=== PATIENT | female | born 1955 | race American Indian/Alaskan Native ===

== ENCOUNTER 2016-11-08 12:49 | Outpatient (CLI) | payer MEDICAID ==
--- NOTE | 2016-11-08 14:09 | Mammography Report ---
BILATERAL MAMMOGRAM: FINDINGS: There are scattered fibroglandular densities (approximately 25%-50% glandular). No mass, suspicious calcification, or skin change is seen. Postoperative right breast scar. No interval change compared to prior study of November 2015. CAD was utilized. IMPRESSION: Negative mammogram. There is no mammographic evidence of malignancy. RECOMMENDATION: Follow-up per ACS guidelines. BI-RADS CATEGORY: 1 = Negative ACR BI-RADS MAMMOGRAPHIC CODES: 0 = Needs additional imaging evaluation; 1 = Negative; 2 = Benign; 3 = Probably benign; 4 = Suspicious; 5 = Malignant; 6 = Known biopsy-proven malignancy COMMENT: 1. Dense breast tissue, i.e., adenosis, fibrocystic changes, etc., may obscure an underlying neoplasm. 2. Approximately 10% of cancers are not detected with mammography. 3. A negative mammography report should not delay biopsy if a clinically suspicious mass is present. COMMENT: Patient follow-up letters are generated in [employer].
== END 2016-11-08 12:50 | disposition home or self-care (01) ==
LOC: MAMMO 12:49
PROVIDERS: ATTEND Family Medicine
DX: Z12.31 Encounter for screening mammogram for malignant neoplasm of breast (principal)
CPT/HCPCS: 77067; G0202

== ENCOUNTER 2017-11-09 13:31 | Outpatient (CLI) | payer MEDICAID ==
--- NOTE | 2017-11-09 16:24 | Mammography Report ---
BILATERAL DIGITAL SCREENING MAMMOGRAM with CAD: 11/09/17 13:31:00 CLINICAL: Routine screening.History of right benign biopsy. COMPARISON:11/08/15 FINDINGS: The breasts are almost entirely fatty.Stable right inner benign scar. No mass, architectural distortion or suspicious calcifications. IMPRESSION: No mammographic evidence of malignancy. BI-RADS CATEGORY: 2 -- Benign RECOMMENDATION: Routine mammographic screening in one year. COMMENT: Patient follow-up letters are generated by our [employer] application.
== END 2017-11-09 13:32 | disposition home or self-care (01) ==
LOC: MAMMO 13:31
PROVIDERS: ATTEND Family Medicine
DX: Z12.31 Encounter for screening mammogram for malignant neoplasm of breast (principal)
CPT/HCPCS: 77067

== ENCOUNTER 2017-12-24 09:13 | Inpatient (IN) | payer MEDICAID ==
--- NOTE | 2017-12-24 11:53 | Emergency Department Report ---
ED Shortness of Breath HPI - General Chief Complaint: Adult Asthma Stated Complaint: SOB Time Seen by Provider: 12/24/17 11:43 Source: patient, EMS, old records reviewed (echo 09/2016) Mode of arrival: Ambulatory Limitations: No Limitations - History of Present Illness Initial Comments: 62-year-old female the past medical history CHF, hypertension, diabetes ( insulin and pills), and chronic renal insufficiency presents to the Hospital complaining of worsening shortness of breath since yesterday. Patient has had chronic dyspnea on exertion and two-pillow orthopnea but has noticed recent decrease in exercise tolerance. She denies PND or adding additional pillows to sleep. She complains of nasal congestion causing difficulty breathing due to stopped up nose but denies cough or fever. Patient has chronic intermittent leg edema that improves with leg elevation out acute changes. Denies calf tenderness, recent travel, wheezing, or chest pain. Patient has been compliant with medications including Lasix 20. PMD: Dr. Trimble director of corporate responsibility: Dr. Johnson, account development executive: Dr. Dooley - Related Data Allergies Allergy/AdvReac Type Severity Reaction Status Date / Time Penicillins AdvReac Swelling Unverified 08/08/13 16:23 ED Review of Systems ROS: Stated complaint: SOB Other details as noted in HPI Comment: All other systems reviewed and negative ED Past Medical Hx - Past Medical History Hx Hypertension: Yes Hx Congestive Heart Failure: Yes Hx Diabetes: Yes (insulin and.) Hx Renal Disease: Yes - Surgical History Additional Surgical History: hysterectomy - Social History Smoking Status: Never Smoker Substance Use Type: None ED Physical Exam - General Limitations: No Limitations - Other Other exam information: General: No limitations, patient is alert in no acute distress Head exam: Atraumatic, normocephalic Eyes exam: Normal appearance ENT: Moist mucous membrane, normal oropharynx Neck exam: Normal inspection, full range of motion, no meningismus nontender Respiratory exam: Clear to auscultation bilateral, no wheezes, rales, crackles Cardiovascular: Normal rate and rhythm, normal heart sounds Abdomen: Soft, nondistended, and nontender, with normal bowel sounds, no rebound, or guarding Extremity: Full range of motion, 1+ ankle edema and trace distal leg edema. No calf tenderness [place]: Normal Inspection, full range of motion, no tenderness Neurologic: Alert, oriented x3, cranial nerves intact, no motor or sensory deficit Psychiatric: normal affect, normal mood Skin: Warm, dry, intact ED Course Vital Signs 12/24/17 09:19 Temperature 98.0 F Pulse Rate 73 Respiratory 18 Rate Blood Pressure 168/61 O2 Sat by Pulse 98 Oximetry ED Medical Decision Making - Lab Data Result diagrams: 12/24/17 12:31 12/24/17 12:31 Lab Results 12/24/17 12/24/17 12/24/17 Range/Units 12:31 12:31 12:31 WBC 8.0 (4.5-11.0) K/mm3 RBC 4.20 (3.65-5.03) M/mm3 Hgb 11.2 (10.1-14.3) gm/dl Hct 35.1 (30.3-42.9) % MCV 83 (79-97) fl MCH 27 L (28-32) pg MCHC 32 (30-34) % RDW 18.8 H (13.2-15.2) % Plt Count 214 (140-440) K/mm3 Lymph % (Auto) 8.5 L (13.4-35.0) % [place] % (Auto) 5.0 (0.0-7.3) % Eos % (Auto) 1.6 (0.0-4.3) % Baso % (Auto) 0.7 (0.0-1.8) % Lymph # 0.7 L (1.2-5.4) K/mm3 [place] # 0.4 (0.0-0.8) K/mm3 Eos # 0.1 (0.0-0.4) K/mm3 Baso # 0.1 (0.0-0.1) K/mm3 Seg Neutrophils % 84.2 H (40.0-70.0) % Seg Neutrophils # 6.7 (1.8-7.7) K/mm3 PT 15.3 H (12.2-14.9) Sec. INR 1.15 H (0.87-1.13) APTT 57.4 H (24.2-36.6) Sec. Sodium 137 (137-145) mmol/L Potassium 4.5 (3.6-5.0) mmol/L Chloride 98.0 (98-107) mmol/L Carbon Dioxide 25 (22-30) mmol/L Anion Gap 19 mmol/L BUN 20 H (7-17) mg/dL Creatinine 1.1 (0.7-1.2) mg/dL Estimated GFR > 60 ml/min BUN/Creatinine Ratio 18 % Glucose 112 H (65-100) mg/dL Calcium 9.2 (8.4-10.2) mg/dL Total Bilirubin 0.70 (0.1-1.2) mg/dL AST 33 (5-40) units/L ALT 31 (7-56) units/L Alkaline Phosphatase 186 H (35-129) units/L NT-Pro-B Natriuret Pep 3874 H (0-900) pg/mL Total Protein 7.2 (6.3-8.2) g/dL Albumin 4.0 (3.9-5) g/dL Albumin/Globulin Ratio 1.3 % - EKG Data -: EKG Interpreted by Me EKG shows normal: sinus rhythm, axis (qrs 32), QRS complexes (qrsd 85), ST-T waves Rate: normal (68) - Radiology Data Radiology results: report reviewed CHEST 2 VIEWS INDICATION: Shortness of breath. COMPARISON: 08/19/2009 FINDINGS: Frontal and lateral chest radiographs demonstrate stable cardiomediastinal silhouette/cardiomegaly and pulmonary arterial hypertension. Aortic knob calcifications. Increased lung markings again noted, more so centrally and toward the bases. Mild bibasilar horizontal atelectasis or scarring. No significant pleural effusions. Demineralized bones and thoracic spondylosis. CONCLUSION: Cardiomegaly, possible pulmonary arterial hypertension and mild bibasilar scarring or atelectasis, as described. Please correlate. Thank you for the opportunity to participate in this patient's care. - Medical Decision Making sob sx of chf/elevated bnp previous echo with pulm htn, eF in the 50's and elevated bnp lasix 40 IV in ED Admitted to her pmd/Dr Aparicio informed - Differential Diagnosis CHF, pneumonia, bronchitis, PE Critical Care Time: No Critical care attestation.: If time is entered above; I have spent that time in minutes in the direct care of this critically ill patient, excluding procedure time. ED Disposition Clinical Impression: Dyspnea, CHF exacerbation, Nasal congestion, HTN (hypertension), Obesity Disposition: OP ADMIT IP TO THIS HOSP Is pt being admited?: Yes Condition: Stable Instructions: Hypertension (ED) Time of Disposition: 15:57 (Dr Trimble)
[2017-12-24 12:54] LABS: Basophils # (Auto) 0.1 K/mm3 (0.0-0.1); Basophils % (Auto) 0.7 % (0.0-1.8); Eosinophils # (Auto) 0.1 K/mm3 (0.0-0.4); Eosinophils % (Auto) 1.6 % (0.0-4.3); Hematocrit 35.1 % (30.3-42.9); Hemoglobin 11.2 gm/dl (10.1-14.3); Lymphocytes # (Auto) 0.7 K/mm3 (1.2-5.4); Lymphocytes % (Auto) 8.5 % (13.4-35.0); Mean Corpuscular HGB Conc 32 % (30-34); Mean Corpuscular Hemoglobin 27 pg (28-32); Mean Corpuscular Volume 83 fl (79-97); Monocytes # (Auto) 0.4 K/mm3 (0.0-0.8); Red Cell Distribution Width 18.8 % (13.2-15.2)
[2017-12-24 13:12] LABS: Alanine Aminotransferase 31 units/L (7-56); BUN/Creatinine Ratio 18; Blood Urea Nitrogen 20 mg/dL (7-17); Calcium 9.2 mg/dL (8.4-10.2); Hemolysis Index 8
[2017-12-24 13:39] LABS: INR 1.15 (0.87-1.13)
[2017-12-24 13:45] LABS: Partial Thromboplastin Time 57.4 Sec. (24.2-36.6)
--- NOTE | 2017-12-24 13:48 | XRay Report ---
CHEST 2 VIEWS INDICATION: Shortness of breath. COMPARISON: 08/19/2009 FINDINGS: Frontal and lateral chest radiographs demonstrate stable cardiomediastinal silhouette/cardiomegaly and pulmonary arterial hypertension. Aortic knob calcifications. Increased lung markings again noted, more so centrally and toward the bases. Mild bibasilar horizontal atelectasis or scarring. No significant pleural effusions. Demineralized bones and thoracic spondylosis. CONCLUSION: Cardiomegaly, possible pulmonary arterial hypertension and mild bibasilar scarring or atelectasis, as described. Please correlate. Thank you for the opportunity to participate in this patient's care.
[2017-12-24 14:24] LABS: Platelet Count 214 K/mm3 (140-440)
[2017-12-24] MEDS ORDERED: LASIX IV ONE (14:33)
[2017-12-24] MEDS ORDERED: PROVENTIL IH PRN (15:21)
[2017-12-24] MEDS ORDERED: SODIUM CHLORIDE FLUSH SYRINGE 10 ML IV PRN (15:21)
[2017-12-24] MEDS ORDERED: ZOFRAN IV PRN (15:21)
--- NOTE | 2017-12-24 15:24 | History and Physical Report ---
Medications and Allergies Allergies Allergy/AdvReac Type Severity Reaction Status Date / Time Penicillins AdvReac Swelling Unverified 08/08/13 16:23 Exam - Constitutional Vitals: Temp Pulse Resp BP Pulse Ox 98.0 F 73 18 168/61 98 12/24/17 09:19 12/24/17 09:19 12/24/17 09:19 12/24/17 09:19 12/24/17 09:19 Results - Labs CBC & Chem 7: 12/24/17 12:31 12/24/17 12:31 Labs: Abnormal lab results 12/24/17 12/24/17 12/24/17 Range/Units 12:31 12:31 12:31 MCH 27 L (28-32) pg RDW 18.8 H (13.2-15.2) % Lymph % (Auto) 8.5 L (13.4-35.0) % Lymph # 0.7 L (1.2-5.4) K/mm3 Seg Neutrophils % 84.2 H (40.0-70.0) % PT 15.3 H (12.2-14.9) Sec. INR 1.15 H (0.87-1.13) APTT 57.4 H (24.2-36.6) Sec. BUN 20 H (7-17) mg/dL Glucose 112 H (65-100) mg/dL Alkaline Phosphatase 186 H (35-129) units/L NT-Pro-B Natriuret Pep 3874 H (0-900) pg/mL
[2017-12-24] MEDS: LASIX IV SCH (19:04)
[2017-12-24] MEDS: SODIUM CHLORIDE FLUSH SYRINGE 10 ML IV SCH (21:38)
[2017-12-24] MEDS: TYLENOL PO PRN (21:40)
[2017-12-24] MEDS ORDERED: D50W (25GM) Syringe IV PRN (22:27)
--- NOTE | 2017-12-24 22:53 | History and Physical Report ---
History of Present Illness Date of examination: 12/24/17 Date of admission: 12/24/17 15:21 Chief complaint: Shortness of breath History of present illness: Patient is a 62-year-old lady who is known to me for a history of heart failure , diabetes mellitus, hypertension, chronic renal failure presented to emergency department on account of significant shortness of breath. Onset was 2 days ago however became severe yesterday. Has two-pillow orthopnea, dyspnea on slight exertion, and chronic intermittent pedal edema. Denies any chest pain, palpitation or dizziness. Patient also complains of nasal congestion but no postnasal drip, cough or fever. Patient admits to being compliant with her medications. I emergency department history was remarkable for cardiomegaly with possible pulmonary arterial hypertension and bibasilar atelectasis versus scaring. ProBNP was 1688. EKG showed sinus rhythm with a rate of 63/m. No ST segment depression. Creatinine was within normal limits. Admission was requested. Past History Past Medical History: diabetes, heart failure, hypertension Past Surgical History: No surgical history Social history: lives with family. denies: smoking, prescription drug abuse, IV drug use Family history: CAD Medications and Allergies Allergies Allergy/AdvReac Type Severity Reaction Status Date / Time Penicillins AdvReac Swelling Unverified 08/08/13 16:23 Home Medications Medication Instructions Recorded Confirmed Last Taken Type Ascorbic Acid [Vitamin C] 500 mg PO DAILY 12/24/17 12/24/17 12/23/17 History Aspirin [Aspirin TAB] 325 mg PO QDAY 12/24/17 12/24/17 12/23/17 History Calcium Carbonate/Vitamin D3 1 each PO DAILY 12/24/17 12/24/17 12/23/17 History [Calcium 600-Vit D3 800 Tablet] Carvedilol [Coreg] 12.5 mg PO BID 12/24/17 12/24/17 12/23/17 History Cyanocobalamin (Vitamin B-12) 500 mcg PO DAILY 12/24/17 12/24/17 12/23/17 History [Vitamin B-12] Ferrous Sulfate [Iron] 325 mg PO QDAY 12/24/17 12/24/17 12/23/17 History Furosemide [Lasix] 20 mg PO QDAY 12/24/17 12/24/17 12/23/17 History Insulin Detemir [Levemir VIAL] 20 units SUB-Q QHS 12/24/17 12/24/17 12/23/17 History Losartan [Cozaar] 50 mg PO QDAY 12/24/17 12/24/17 12/23/17 History Metformin HCl [Glucophage] 1,000 mg PO BID 12/24/17 12/24/17 12/23/17 History [place]-3/Dha/Epa/Fish Oil [Fish Oil 1 each PO DAILY 12/24/17 12/24/17 12/23/17 History 1,000 mg Softgel] Pravastatin [Pravachol] 20 mg PO QHS 12/24/17 12/24/17 12/23/17 History Ranitidine HCl [Acid Drug Abuse Counselor] 150 mg PO QDAY 12/24/17 12/24/17 12/23/17 History Sodium Bicarbonate 650 mg PO BID 12/24/17 12/24/17 12/23/17 History Spironolactone [Aldactone] 25 mg PO QDAY 12/24/17 12/24/17 12/23/17 History Vitamin E 400 unit PO QDAY 12/24/17 12/24/17 12/23/17 History Active Meds: Active Medications Acetaminophen (Tylenol) 650 mg PO Q4H PRN PRN Reason: Pain MILD(1-3)/Fever >100.5/COULTER Last Admin: 12/24/17 21:40 Dose: 650 mg Albuterol (Proventil) 2.5 mg IH Q4HRT PRN PRN Reason: Shortness Of Breath Ascorbic Acid (Vitamin C) 500 mg PO DAILY [facility] Aspirin (Aspirin) 325 mg PO QDAY [facility] Carvedilol (Coreg) 12.5 mg PO BID [facility] Dextrose (D50w (25gm) Syringe) 50 ml IV PRN PRN PRN Reason: Hypoglycemia Ferrous Sulfate (Feosol) 325 mg PO QDAY [facility] Furosemide (Lasix) 40 mg IV BID@0600,1800 [facility] Last Admin: 12/24/17 19:04 Dose: 40 mg Insulin Human Lispro (Humalog) 0 unit SUB-Q [facility]; Protocol Losartan Potassium (Cozaar) 50 mg PO QDAY [facility] Miscellaneous Medication (Calcium Carbonate/Vitamin D3 [Calcium 600-Vit D3 800 Tablet]) 1 each PO DAILY [facility] Miscellaneous Medication (Cyanocobalamin (Vitamin B-12) [Vitamin B-12]) 500 mcg PO DAILY [facility] Miscellaneous Medication (Insulin Detemir [Levemir Vial]) 20 units SUB-Q QHS [facility] Miscellaneous Medication (Metformin Hcl [Glucophage]) 1,000 mg PO BID [facility] Miscellaneous Medication (Vitamin E [Vitamin E]) 400 unit PO QDAY [facility] Ondansetron HCl (Zofran) 4 mg IV Q8H PRN PRN Reason: Nausea And Vomiting Pravastatin Sodium (Pravachol) 20 mg PO QHS [facility] Sodium Bicarbonate (Sodium Bicarbonate) 650 mg PO BID [facility] Sodium Chloride (Sodium Chloride Flush Syringe 10 Ml) 10 ml IV BID [facility] Last Admin: 12/24/17 21:38 Dose: 10 ml Sodium Chloride (Sodium Chloride Flush Syringe 10 Ml) 10 ml IV PRN PRN PRN Reason: LINE FLUSH Spironolactone (Aldactone) 25 mg PO QDAY [facility] Review of systems Constitutional: Well Nouridhed and Well developed. Head: NC/ AT Eyes: Denies any visual impairments. No discharge from the eyes Nose: Denies any rhinorrhea or epistaxis Throats: Denies any post nasal drainage. Ears: Denies any hearing deficits Cardiovascular system: Denies any chest pain, shortness of breath, orthopnea, paroxysmal nocturnal dyspnea, or palpitation. Respiratory system: Denies any cough, difficulty breathing, wheezing, pleuritic chest pain, Gastrointestinal system: Denies any abdominal pain, nausea vomiting, hematemesis or melena. Neurological system: Denies any headache, slurred speech, facial droop, lateralizing weakness Genitalia system: Denies any dysuria, urinary frequency or urgency, urethral discharge Skin: No rashes, hyperpigmented spots. Hematological: Denies any cervical tenderness hemorrhages or petechia. Immunological: Denies any multiple septic spots, Lymphatic: Denies any generalized lymphadenopathy. Endocrine: Denies any polyuria, polydipsia, polyphagia. No heat or cold intolerance. Musculoskeletal system: No joint pain or swelling. Psych: No visual, tactile, auditory or hallucination Exam - Physical Exam Narrative exam: Constitutional: Well-nourished well-developed. In no distress Head: Normocephalic atraumatic Eyes: Pupils are equal round and reactive to light Nose: No enlarged turbinates, no septal deviation. Mouth: Moist mucous membranes. Neck: Supple no thyromegaly. No bruit. No JVD Heart: Regular rate and rhythm, S1-S2 abnormal. No rubs murmurs or gallop Lungs: Clear to auscultation bilaterally no rales or rhonchi Abdomen: Soft, nontender. Bowel sound are present. Extremities: Mild pedal edema. No cyanosis and no clubbing. Neuro: Alert oriented Oriented x3. No focal sensory or motor deficit. Skin: No rashes no hyperemic spots Psychiatry: Euthymic. Calm. - Constitutional Vitals: Temp Pulse Resp BP Pulse Ox 98.5 F 69 18 152/65 99 12/24/17 19:31 12/24/17 19:31 12/24/17 21:42 12/24/17 19:31 12/24/17 19:31 Results - Labs CBC & Chem 7: 12/24/17 12:31 12/24/17 12:31 Labs: Abnormal lab results 12/24/17 12/24/17 12/24/17 Range/Units 12:31 12:31 12:31 MCH 27 L (28-32) pg RDW 18.8 H (13.2-15.2) % Lymph % (Auto) 8.5 L (13.4-35.0) % Lymph # 0.7 L (1.2-5.4) K/mm3 Seg Neutrophils % 84.2 H (40.0-70.0) % PT 15.3 H (12.2-14.9) Sec. INR 1.15 H (0.87-1.13) APTT 57.4 H (24.2-36.6) Sec. D-Dimer (0-234) ng/mlDDU BUN 20 H (7-17) mg/dL Glucose 112 H (65-100) mg/dL Alkaline Phosphatase 186 H (35-129) units/L NT-Pro-B Natriuret Pep 3874 H (0-900) pg/mL 12/24/17 Range/Units 13:12 MCH (28-32) pg RDW (13.2-15.2) % Lymph % (Auto) (13.4-35.0) % Lymph # (1.2-5.4) K/mm3 Seg Neutrophils % (40.0-70.0) % PT (12.2-14.9) Sec. INR (0.87-1.13) APTT (24.2-36.6) Sec. D-Dimer 1688.16 H (0-234) ng/mlDDU BUN (7-17) mg/dL Glucose (65-100) mg/dL Alkaline Phosphatase (35-129) units/L NT-Pro-B Natriuret Pep (0-900) pg/mL Assessment and Plan - Shortness of breath Secondary to heart failure - Heart failure Previous Echocardiogram of showed HFpEF EF was 50-55% with AI, MS Over One year since the last echocardiogram. We'll reorder echo for repeat Systolic function eval. - Pulmonary artery hypertension Diuresis, nitrates and supplemental oxygen ECHO ordered to reassess. Cardiology consult - Multiple valvular disease with Aortic insufficiency and mitral stenosis -Diabetes mellitus Consistent carbohydrate diet Sliding scale insulin - DVT prophylaxis Lovenox and GI with Pepcid
[2017-12-25] MEDS: GLUCOPHAGE PO SCH ×3 (00:10→21:45)
[2017-12-25] MEDS: PRAVACHOL PO SCH ×2 (00:11→21:45)
[2017-12-25] MEDS: SODIUM BICARBONATE PO SCH ×3 (00:12→21:45)
[2017-12-25] MEDS: COREG PO SCH ×3 (00:12→21:46)
[2017-12-25] MEDS: LASIX IV SCH ×2 (06:27→18:45)
--- NOTE | 2017-12-25 07:17 | Progress Note ---
Assessment and Plan - Shortness of breath Secondary to heart failure - Heart failure Previous Echocardiogram of 09/22/16 showed HFpEF EF was 50-55% with AI, MS Over One year since the last echocardiogram. We'll reorder another echo for further evaluation of systolic function and Pulm. art pressure. - Pulmonary artery hypertension Diuresis and nitrates Cardiology consult - Multiple valvular disease with Aortic insufficiency and mitral stenosis ECHO ordered. Cardiology consulted to further evaluate -Diabetes mellitus Consistent carbohydrate diet Sliding scale insulin - DVT prophylaxis with Lovenox and GI with Pepcid Subjective Date of service: 12/25/17 Principal diagnosis: Heart failure with preserved ejction fraction Interval history: Still having shortness of breath. Denies any chest pain Objective - Exam Narrative Exam: Constitutional: Well-nourished well-developed. In no distress Head: Normocephalic atraumatic Eyes: Pupils are equal round and reactive to light Nose: No enlarged turbinates, no septal deviation. Mouth: Moist mucous membranes. Neck: Supple no thyromegaly. No bruit. No JVD Heart: Regular rate and rhythm, S1-S2 abnormal. No rubs murmurs or gallop Lungs: Clear to auscultation bilaterally no rales or rhonchi Abdomen: Soft, nontender. Bowel sound are present. Extremities: Mild pedal edema. No cyanosis and no clubbing. Neuro: Alert oriented Oriented x3. No focal sensory or motor deficit. Skin: No rashes no hyperemic spots. Psychiatry: Euthymic. Calm. - Constitutional Vitals: Vital Signs - 12hr 12/24/17 12/24/17 12/24/17 19:10 19:21 19:31 Temperature 98.5 F Pulse Rate 72 69 69 Pulse Rate [ Apical] Respiratory 14 17 16 Rate Respiratory Rate [Head] Blood Pressure 116/70 153/60 Blood Pressure 152/65 [Left] O2 Sat by Pulse 100 100 99 Oximetry 12/24/17 12/24/17 12/24/17 20:44 21:40 21:42 Temperature 98.4 F Pulse Rate 63 Pulse Rate [ Apical] Respiratory 20 18 Rate Respiratory 18 Rate [Head] Blood Pressure 154/49 Blood Pressure [Left] O2 Sat by Pulse 94 Oximetry 12/24/17 12/24/17 12/25/17 22:40 23:36 00:03 Temperature 98.2 F Pulse Rate 71 Pulse Rate [ 78 Apical] Respiratory 20 18 18 Rate Respiratory Rate [Head] Blood Pressure 127/48 Blood Pressure [Left] O2 Sat by Pulse 98 88 Oximetry 12/25/17 12/25/17 00:12 04:25 Temperature 98.4 F Pulse Rate 71 104 H Pulse Rate [ Apical] Respiratory 18 Rate Respiratory Rate [Head] Blood Pressure 127/58 122/33 Blood Pressure [Left] O2 Sat by Pulse 91 Oximetry - Labs CBC & Chem 7: 12/24/17 12:31 12/24/17 12:31 Labs: Abnormal lab results 12/24/17 12/24/17 12/24/17 Range/Units 12:31 12:31 12:31 MCH 27 L (28-32) pg RDW 18.8 H (13.2-15.2) % Lymph % (Auto) 8.5 L (13.4-35.0) % Lymph # 0.7 L (1.2-5.4) K/mm3 Seg Neutrophils % 84.2 H (40.0-70.0) % PT 15.3 H (12.2-14.9) Sec. INR 1.15 H (0.87-1.13) APTT 57.4 H (24.2-36.6) Sec. D-Dimer (0-234) ng/mlDDU BUN 20 H (7-17) mg/dL Glucose 112 H (65-100) mg/dL POC Glucose (70-105) Alkaline Phosphatase 186 H (35-129) units/L NT-Pro-B Natriuret Pep 3874 H (0-900) pg/mL 12/24/17 12/25/17 Range/Units 13:12 06:30 MCH (28-32) pg RDW (13.2-15.2) % Lymph % (Auto) (13.4-35.0) % Lymph # (1.2-5.4) K/mm3 Seg Neutrophils % (40.0-70.0) % PT (12.2-14.9) Sec. INR (0.87-1.13) APTT (24.2-36.6) Sec. D-Dimer 1688.16 H (0-234) ng/mlDDU BUN (7-17) mg/dL Glucose (65-100) mg/dL POC Glucose 140 H (70-105) Alkaline Phosphatase (35-129) units/L NT-Pro-B Natriuret Pep (0-900) pg/mL
[2017-12-25] MEDS: HumaLOG SUB-Q SCH ×4 (07:40→21:56)
[2017-12-25 07:52] LABS: Basophils % (Auto) 0.5 % (0.0-1.8); Eosinophils # (Auto) 0.2 K/mm3 (0.0-0.4); Hematocrit 36.4 % (30.3-42.9); Hemoglobin 11.7 gm/dl (10.1-14.3); Lymphocytes # (Auto) 0.7 K/mm3 (1.2-5.4); Lymphocytes % (Auto) 8.4 % (13.4-35.0); Mean Corpuscular HGB Conc 32 % (30-34); Mean Corpuscular Hemoglobin 27 pg (28-32); Mean Corpuscular Volume 83 fl (79-97); Monocytes # (Auto) 0.5 K/mm3 (0.0-0.8); Monocytes % (Auto) 5.7 % (0.0-7.3); Red Blood Count 4.38 M/mm3 (3.65-5.03); Red Cell Distribution Width 18.8 % (13.2-15.2)
[2017-12-25 07:53] LABS: Platelet Count 212 K/mm3 (140-440)
[2017-12-25 08:14] LABS: Albumin 3.8 g/dL (3.9-5); Calcium 9.5 mg/dL (8.4-10.2)
[2017-12-25] MEDS: VITAMIN C PO SCH (09:21)
[2017-12-25] MEDS: FEOSOL PO SCH (09:21)
[2017-12-25] MEDS: VITAMIN B-12 PO SCH (09:21)
[2017-12-25] MEDS: COZAAR PO SCH (09:22)
[2017-12-25] MEDS: ALDACTONE PO SCH (09:22)
[2017-12-25] MEDS: ASPIRIN PO SCH (09:22)
[2017-12-25] MEDS: CALTRATE PLUS PO SCH (09:22)
[2017-12-25] MEDS: SODIUM CHLORIDE FLUSH SYRINGE 10 ML IV SCH ×2 (09:23→21:45)
[2017-12-25] MEDS: VITAMIN E CAP PO SCH (09:23)
--- NOTE | 2017-12-25 11:37 | Consultation ---
History of Present Illness Consult date: 12/25/17 Consult reason: congestive heart failure History of present illness: This is a 62 year old woman who presents to this hospital with complaints of shortness of breath over 1 week. Patient denies chest pain and palpitations. There is no lower extremity edema. 12 lead ECG is benign. Patient is known to [facility]. She has a history of valvular heart disease and has had extensive cardiac workup. In 2009, she underwent a right and left cardiac cath: 1. mild to moderate aortic regurgitation 2. mild to moderate mitral stenosis, MVG 13.4. 3. normal coronaries 4. LVEF 45-50% 08/2016: normal persantine thallium stress test. 09/2016 echocardiogram documents a moderate aortic regurgitation, mild mitral stenosis with mean gradient 10 and severe pulmonary hypertension with pulmonary artery systolic pressure 85. LVEF 50%. Past History Past Surgical History: No surgical history Social history: lives with family. denies: smoking, prescription drug abuse, IV drug use Family history: CAD Medications and Allergies Allergies Allergy/AdvReac Type Severity Reaction Status Date / Time Penicillins AdvReac Swelling Unverified 08/08/13 16:23 Home Medications Medication Instructions Recorded Confirmed Last Taken Type Ascorbic Acid [Vitamin C] 500 mg PO DAILY 12/24/17 12/24/17 12/23/17 History Aspirin [Aspirin TAB] 325 mg PO QDAY 12/24/17 12/24/17 12/23/17 History Calcium Carbonate/Vitamin D3 1 each PO DAILY 12/24/17 12/24/17 12/23/17 History [Calcium 600-Vit D3 800 Tablet] Carvedilol [Coreg] 12.5 mg PO BID 12/24/17 12/24/17 12/23/17 History Cyanocobalamin (Vitamin B-12) 500 mcg PO DAILY 12/24/17 12/24/17 12/23/17 History [Vitamin B-12] Ferrous Sulfate [Iron] 325 mg PO QDAY 12/24/17 12/24/17 12/23/17 History Furosemide [Lasix] 20 mg PO QDAY 12/24/17 12/24/17 12/23/17 History Insulin Detemir [Levemir VIAL] 20 units SUB-Q QHS 12/24/17 12/24/17 12/23/17 History Losartan [Cozaar] 50 mg PO QDAY 12/24/17 12/24/17 12/23/17 History Metformin HCl [Glucophage] 1,000 mg PO BID 12/24/17 12/24/17 12/23/17 History [place]-3/Dha/Epa/Fish Oil [Fish Oil 1 each PO DAILY 12/24/17 12/24/17 12/23/17 History 1,000 mg Softgel] Pravastatin [Pravachol] 20 mg PO QHS 12/24/17 12/24/17 12/23/17 History Ranitidine HCl [Acid Bilingual Sales Representative] 150 mg PO QDAY 12/24/17 12/24/17 12/23/17 History Sodium Bicarbonate 650 mg PO BID 12/24/17 12/24/17 12/23/17 History Spironolactone [Aldactone] 25 mg PO QDAY 12/24/17 12/24/17 12/23/17 History Vitamin E 400 unit PO QDAY 12/24/17 12/24/17 12/23/17 History Active Meds: Active Medications Acetaminophen (Tylenol) 650 mg PO Q4H PRN PRN Reason: Pain MILD(1-3)/Fever >100.5/COULTER Last Admin: 12/24/17 21:40 Dose: 650 mg Albuterol (Proventil) 2.5 mg IH Q4HRT PRN PRN Reason: Shortness Of Breath Ascorbic Acid (Vitamin C) 500 mg PO DAILY [facility] Last Admin: 12/25/17 09:21 Dose: 500 mg Aspirin (Aspirin) 325 mg PO QDAY [facility] Last Admin: 12/25/17 09:22 Dose: 325 mg Carvedilol (Coreg) 12.5 mg PO BID [facility] Last Admin: 12/25/17 09:22 Dose: 12.5 mg Cyanocobalamin (Vitamin B-12) 500 mcg PO DAILY [facility] Last Admin: 12/25/17 09:21 Dose: 500 mcg Dextrose (D50w (25gm) Syringe) 50 ml IV PRN PRN PRN Reason: Hypoglycemia Ferrous Sulfate (Feosol) 325 mg PO QDAY [facility] Last Admin: 12/25/17 09:21 Dose: 325 mg Furosemide (Lasix) 40 mg IV BID@0600,1800 [facility] Last Admin: 12/25/17 06:27 Dose: 40 mg Insulin Glargine (Lantus) 20 units SUB-Q QHS [facility] Insulin Human Lispro (Humalog) 0 unit SUB-Q ACHS [facility]; Protocol Last Admin: 12/25/17 07:40 Dose: Not Given Losartan Potassium (Cozaar) 50 mg PO QDAY [facility] Last Admin: 12/25/17 09:22 Dose: 50 mg Metformin HCl (Glucophage) 1,000 mg PO BID [facility] Last Admin: 12/25/17 09:21 Dose: 1,000 mg Multivitamins/Minerals (Caltrate Plus) 1 each PO QAM [facility] Last Admin: 12/25/17 09:22 Dose: Not Given Ondansetron HCl (Zofran) 4 mg IV Q8H PRN PRN Reason: Nausea And Vomiting Pravastatin Sodium (Pravachol) 20 mg PO QHS [facility] Last Admin: 12/25/17 00:11 Dose: 20 mg Sodium Bicarbonate (Sodium Bicarbonate) 650 mg PO BID [facility] Last Admin: 12/25/17 09:21 Dose: 650 mg Sodium Chloride (Sodium Chloride Flush Syringe 10 Ml) 10 ml IV BID [facility] Last Admin: 12/25/17 09:23 Dose: 10 ml Sodium Chloride (Sodium Chloride Flush Syringe 10 Ml) 10 ml IV PRN PRN PRN Reason: LINE FLUSH Spironolactone (Aldactone) 25 mg PO QDAY [facility] Last Admin: 12/25/17 09:22 Dose: 25 mg Vitamin E (Vitamin E Cap) 400 unit PO QDAY [facility] Last Admin: 12/25/17 09:23 Dose: Not Given Physical Examination Vital Signs Temp Pulse Resp BP Pulse Ox 98.0 F 73 18 168/61 98 12/24/17 09:19 12/24/17 09:19 12/24/17 09:19 12/24/17 09:19 12/24/17 09:19 General appearance: no acute distress HEENT: Positive: PERRL Cardiac: Positive: Reg Rate and Rhythm Lungs: Positive: Decreased Breath Sounds Neuro: Positive: Grossly Intact Extremities: Absent: edema Results 12/25/17 06:59 12/25/17 06:59 Cardiac Enzymes 12/24/17 12/25/17 Range/Units 12:31 06:59 AST 33 27 (5-40) units/L Coagulation 12/24/17 Range/Units 12:31 PT 15.3 H (12.2-14.9) Sec. INR 1.15 H (0.87-1.13) APTT 57.4 H (24.2-36.6) Sec. CBC 18 12/25/17 Range/Units 12:31 06:59 WBC 8.0 8.9 (4.5-11.0) K/mm3 RBC 4.20 4.38 (3.65-5.03) M/mm3 Hgb 11.2 11.7 (10.1-14.3) gm/dl Hct 35.1 36.4 (30.3-42.9) % Plt Count 214 212 (140-440) K/mm3 Lymph # 0.7 L 0.7 L (1.2-5.4) K/mm3 [place] # 0.4 0.5 (0.0-0.8) K/mm3 Eos # 0.1 0.2 (0.0-0.4) K/mm3 Baso # 0.1 0.0 (0.0-0.1) K/mm3 Comprehensive Metabolic Panel 12/24/17 12/25/17 Range/Units 12:31 06:59 Sodium 137 141 (137-145) mmol/L Potassium 4.5 4.3 (3.6-5.0) mmol/L Chloride 98.0 97.1 L (98-107) mmol/L Carbon Dioxide 25 27 (22-30) mmol/L BUN 20 H 27 H (7-17) mg/dL Creatinine 1.1 1.3 H (0.7-1.2) mg/dL Glucose 112 H 147 H (65-100) mg/dL Calcium 9.2 9.5 (8.4-10.2) mg/dL AST 33 27 (5-40) units/L ALT 31 34 (7-56) units/L Alkaline Phosphatase 186 H 192 H (35-129) units/L Total Protein 7.2 7.4 (6.3-8.2) g/dL Albumin 4.0 3.8 L (3.9-5) g/dL
[2017-12-25] MEDS: LANTUS SUB-Q SCH (21:47)
[2017-12-25] MEDS ORDERED: INSULIN DETEMIR 20 UNIT SUB-Q SCH (22:00)
[2017-12-26] MEDS: TYLENOL PO PRN (04:29)
[2017-12-26] MEDS: LASIX IV SCH (06:12)
[2017-12-26] MEDS: HumaLOG SUB-Q SCH ×4 (07:30→21:58)
[2017-12-26] MEDS: VITAMIN E CAP PO SCH (10:50)
[2017-12-26] MEDS: CALTRATE PLUS PO SCH (10:51)
[2017-12-26] MEDS: VITAMIN C PO SCH (10:51)
[2017-12-26] MEDS: VITAMIN B-12 PO SCH (10:51)
[2017-12-26] MEDS: SODIUM BICARBONATE PO SCH (10:51)
[2017-12-26] MEDS: ALDACTONE PO SCH (10:51)
[2017-12-26] MEDS: COZAAR PO SCH (10:51)
[2017-12-26] MEDS: GLUCOPHAGE PO SCH ×2 (10:52→21:58)
[2017-12-26] MEDS: FEOSOL PO SCH (10:52)
[2017-12-26] MEDS: ASPIRIN PO SCH (10:52)
[2017-12-26] MEDS: COREG PO SCH ×2 (10:52→21:58)
[2017-12-26] MEDS: SODIUM CHLORIDE FLUSH SYRINGE 10 ML IV SCH ×2 (10:53→22:00)
[2017-12-26 11:03] LABS: Basophils % (Auto) 0.4 % (0.0-1.8); Eosinophils # (Auto) 0.2 K/mm3 (0.0-0.4); Eosinophils % (Auto) 2.3 % (0.0-4.3); Hematocrit 41.2 % (30.3-42.9); Hemoglobin 13.4 gm/dl (10.1-14.3); Lymphocytes # (Auto) 0.8 K/mm3 (1.2-5.4); Lymphocytes % (Auto) 8.2 % (13.4-35.0); Mean Corpuscular HGB Conc 33 % (30-34); Mean Corpuscular Hemoglobin 27 pg (28-32); Mean Corpuscular Volume 83 fl (79-97); Monocytes # (Auto) 0.7 K/mm3 (0.0-0.8); Monocytes % (Auto) 7.1 % (0.0-7.3); Platelet Count 264 K/mm3 (140-440); Red Blood Count 4.98 M/mm3 (3.65-5.03); Red Cell Distribution Width 18.5 % (13.2-15.2)
--- NOTE | 2017-12-26 11:03 | Progress Note ---
Assessment and Plan CHF exacerbation, diastolic Hx of Mitral stenosis We will proceed with a right and left heart catheterization for current assessment of the severity of the mitral stenosis and evaluate for possible underlying coronary artery disease tomorrow. Subjective Date of service: 12/26/17 Principal diagnosis: Heart failure with preserved ejction fraction Interval history: Patient reports her breathing is better. She denies chest pain. Objective Vital Signs Temp Pulse Resp BP Pulse Ox 12/26/17 07:13 97.8 F 68 18 116/53 92 12/26/17 03:09 97.7 F 76 16 125/46 86 12/25/17 23:37 98.1 F 105 H 18 131/63 85 12/25/17 22:00 100 12/25/17 21:46 73 144/72 12/25/17 19:39 97.7 F 79 16 144/72 95 12/25/17 17:25 98.4 F 67 18 149/48 94 12/25/17 11:50 96 12/25/17 11:34 97.9 F 99 H 18 131/54 95 - Physical Examination General: No Apparent Distress HEENT: Positive: PERRL Cardiac: Positive: Reg Rate and Rhythm Neuro: Positive: Grossly Intact Extremities: Absent: edema
--- NOTE | 2017-12-26 11:10 | Progress Note ---
Assessment and Plan - HFpEF Previous Echocardiogram of showed HFpEF EF was 50-55% with AI, MS Over One year since the last echocardiogram. We'll reorder echo for repeat Systolic function eval. - Shortness of breath Secondary to heart failure - Pulmonary artery hypertension Diuresis, nitrates and supplemental oxygen ECHO ordered to reassess. Cardiology consult - Mitral stenosis and Aortic insufficiency Cardiology following. Cardiac cath planned -Diabetes mellitus Consistent carbohydrate diet Sliding scale insulin - LETHA likely from diuresis Trend BUN and Cr. Am CMP pending Hold lasix from today b/c cardiac cath and commence cautious iv hydration - DVT prophylaxis Lovenox and GI with Pepcid Subjective Date of service: 12/26/17 Principal diagnosis: Heart failure with preserved ejction fraction Interval history: Still having shortness of breath though improved. Denies any chest pain Objective - Exam Narrative Exam: Constitutional: Well-nourished well-developed. In no distress Head: Normocephalic atraumatic Eyes: Pupils are equal round and reactive to light Nose: No enlarged turbinates, no septal deviation. Mouth: Moist mucous membranes. Neck: Supple no thyromegaly. No bruit. No JVD Heart: Regular rate and rhythm, S1-S2 abnormal. No rubs murmurs or gallop Lungs: Clear to auscultation bilaterally no rales or rhonchi Abdomen: Soft, nontender. Bowel sound are present. Extremities: Mild pedal edema. No cyanosis and no clubbing. Neuro: Alert oriented Oriented x3. No focal sensory or motor deficit. Skin: No rashes no hyperemic spots Psychiatry: Euthymic. Calm. - Constitutional Vitals: Vital Signs - 12hr 12/25/17 12/26/17 12/26/17 23:37 03:09 07:13 Temperature 98.1 F 97.7 F 97.8 F Pulse Rate 105 H 76 68 Respiratory 18 16 18 Rate Blood Pressure 131/63 125/46 116/53 O2 Sat by Pulse 85 86 92 Oximetry - Labs CBC & Chem 7: 12/26/17 09:36 12/25/17 06:59 Labs: Abnormal lab results 12/25/17 12/25/17 12/25/17 Range/Units 11:46 17:36 21:05 MCH (28-32) pg RDW (13.2-15.2) % Lymph % (Auto) (13.4-35.0) % Lymph # (1.2-5.4) K/mm3 Seg Neutrophils % (40.0-70.0) % Seg Neutrophils # (1.8-7.7) K/mm3 POC Glucose 172 H 125 H 245 H (70-105) 12/26/17 12/26/17 Range/Units 06:30 09:36 MCH 27 L (28-32) pg RDW 18.5 H (13.2-15.2) % Lymph % (Auto) 8.2 L (13.4-35.0) % Lymph # 0.8 L (1.2-5.4) K/mm3 Seg Neutrophils % 82.0 H (40.0-70.0) % Seg Neutrophils # 7.9 H (1.8-7.7) K/mm3 POC Glucose 143 H (70-105)
[2017-12-26 11:18] LABS: Albumin 4.3 g/dL (3.9-5); Calcium 10.1 mg/dL (8.4-10.2)
[2017-12-26] MEDS ORDERED: NACL 0.9% 1000 ML 1,000 ML IV SCH (12:00)
[2017-12-26] MEDS: PRAVACHOL PO SCH (21:58)
[2017-12-26] MEDS: LANTUS SUB-Q SCH (21:59)
[2017-12-27 07:19] LABS: Hemoglobin 12.5 gm/dl (10.1-14.3); Mean Corpuscular HGB Conc 31 % (30-34); Mean Corpuscular Hemoglobin 26 pg (28-32); Mean Corpuscular Volume 84 fl (79-97); Platelet Count 235 K/mm3 (140-440); Red Blood Count 4.79 M/mm3 (3.65-5.03); Red Cell Distribution Width 18.7 % (13.2-15.2)
[2017-12-27 07:21] LABS: INR 1.13 (0.87-1.13)
[2017-12-27 07:25] LABS: Albumin 3.8 g/dL (3.9-5); Calcium 9.4 mg/dL (8.4-10.2)
[2017-12-27] MEDS: HumaLOG SUB-Q SCH ×4 (08:30→23:53)
[2017-12-27] MEDS ORDERED: ASPIRIN ONE (10:00)
[2017-12-27] MEDS: ASPIRIN PO SCH (10:00)
[2017-12-27] MEDS ORDERED: HEPARIN/NS 5000 UNIT/500ML(CATH LAB) 1,000 ML IR ONE (10:09)
[2017-12-27] MEDS ORDERED: CALAN ONE (10:09)
[2017-12-27] MEDS ORDERED: NITROGLYCERIN SYRINGE 0 ML ONE (10:09)
[2017-12-27] MEDS ORDERED: HEPARIN 10,000 UNITS/10 ML ONE ×3 (10:09→10:45)
--- NOTE | 2017-12-27 10:27 | Progress Note ---
Assessment and Plan - HFpEF Previous Echocardiogram of showed HFpEF EF was 50-55% with AI, MS Over One year since the last echocardiogram. We'll reorder echo for repeat Systolic function eval. - Shortness of breath Secondary to heart failure - Pulmonary artery hypertension Diuresis, nitrates and supplemental oxygen ECHO ordered to reassess. Cardiology consult - Mitral stenosis and Aortic insufficiency Fro cardiac cath today Cardiology following. -Diabetes mellitus Consistent carbohydrate diet Sliding scale insulin - LETHA likely from diuresis Trend BUN and Cr. Am CMP pending Hold lasix from today b/c cardiac cath and commence cautious iv hydration - DVT prophylaxis Lovenox and GI with Pepcid Subjective Date of service: 12/27/17 Principal diagnosis: Heart failure with preserved ejction fraction Interval history: Still having shortness of breath though improved. Denies any chest pain, Objective - Exam Narrative Exam: Constitutional: Well-nourished well-developed. In no distress Head: Normocephalic atraumatic Eyes: Pupils are equal round and reactive to light Nose: No enlarged turbinates, no septal deviation. Mouth: Moist mucous membranes. Neck: Supple no thyromegaly. No bruit. No JVD Heart: Regular rate and rhythm, S1-S2 abnormal. No rubs murmurs or gallop Lungs: Clear to auscultation bilaterally no rales or rhonchi Abdomen: Soft, nontender. Bowel sound are present. Extremities: Mild pedal edema. No cyanosis and no clubbing. Neuro: Alert oriented Oriented x3. No focal sensory or motor deficit. Skin: No rashes no hyperemic spots Psychiatry: Euthymic. Calm. - Constitutional Vitals: Vital Signs - 12hr 12/26/17 12/27/17 12/27/17 23:48 00:58 04:06 Temperature 97.6 F Pulse Rate 74 76 71 Respiratory 20 Rate Blood Pressure 125/41 121/38 Blood Pressure 125/41 [Left] O2 Sat by Pulse 96 95 92 Oximetry 12/27/17 12/27/17 05:16 07:27 Temperature 98.1 F 98.4 F Pulse Rate 75 72 Respiratory 18 20 Rate Blood Pressure 133/60 Blood Pressure 121/38 [Left] O2 Sat by Pulse 97 97 Oximetry - Labs CBC & Chem 7: 12/27/17 06:59 12/27/17 06:59 Labs: Abnormal lab results 12/26/17 12/26/17 12/26/17 Range/Units 09:36 09:36 11:23 MCH 27 L (28-32) pg RDW 18.5 H (13.2-15.2) % Lymph % (Auto) 8.2 L (13.4-35.0) % Lymph # 0.8 L (1.2-5.4) K/mm3 Seg Neutrophils % 82.0 H (40.0-70.0) % Seg Neutrophils # 7.9 H (1.8-7.7) K/mm3 PT (12.2-14.9) Sec. Chloride 93.2 L (98-107) mmol/L BUN 32 H (7-17) mg/dL Creatinine 1.4 H (0.7-1.2) mg/dL Glucose 132 H (65-100) mg/dL POC Glucose 252 H (70-105) Alkaline Phosphatase 210 H (35-129) units/L Total Protein 8.3 H (6.3-8.2) g/dL Albumin (3.9-5) g/dL 12/26/17 12/26/17 12/27/17 Range/Units 16:06 21:29 06:55 MCH (28-32) pg RDW (13.2-15.2) % Lymph % (Auto) (13.4-35.0) % Lymph # (1.2-5.4) K/mm3 Seg Neutrophils % (40.0-70.0) % Seg Neutrophils # (1.8-7.7) K/mm3 PT (12.2-14.9) Sec. Chloride (98-107) mmol/L BUN (7-17) mg/dL Creatinine (0.7-1.2) mg/dL Glucose (65-100) mg/dL POC Glucose 140 H 192 H 135 H (70-105) Alkaline Phosphatase (35-129) units/L Total Protein (6.3-8.2) g/dL Albumin (3.9-5) g/dL 12/27/17 12/27/17 12/27/17 Range/Units 06:59 06:59 06:59 MCH 26 L (28-32) pg RDW 18.7 H (13.2-15.2) % Lymph % (Auto) (13.4-35.0) % Lymph # (1.2-5.4) K/mm3 Seg Neutrophils % (40.0-70.0) % Seg Neutrophils # (1.8-7.7) K/mm3 PT 15.1 H (12.2-14.9) Sec. Chloride 97.8 L (98-107) mmol/L BUN 41 H (7-17) mg/dL Creatinine 1.4 H (0.7-1.2) mg/dL Glucose 141 H (65-100) mg/dL POC Glucose (70-105) Alkaline Phosphatase 183 H (35-129) units/L Total Protein (6.3-8.2) g/dL Albumin 3.8 L (3.9-5) g/dL
[2017-12-27] MEDS: VERSED ONE ×2 (10:44→10:57)
[2017-12-27] MEDS: SUBLIMAZE ONE ×2 (10:44→10:57)
[2017-12-27] MEDS: XYLOCAINE 2% INFILTRATI ONE ×2 (10:45→10:59)
[2017-12-27] MEDS: NACL 0.9% 500 ML 500 ML ONE ×2 (10:45→10:55)
[2017-12-27] MEDS: HEPARIN/NS 5000 UNIT/500ML(CATH LAB) 500 ML IR ONE ×2 (10:45→10:55)
[2017-12-27] MEDS: CALTRATE PLUS PO SCH (12:20)
[2017-12-27] MEDS: FEOSOL PO SCH (12:20)
--- NOTE | 2017-12-27 12:20 | Event Note ---
Date: 12/27/17 Right and left heart catheterization, no complications. Findings: Moderate elevation of right and left heart filling pressures. Severe pulmonary hypertension, pulmonary artery systolic pressure of 95. Severe mitral stenosis, mean gradient 16.5, mitral valve area 0.9. Mild aortic stenosis, trans-aortic gradient less than 10. Angiographically normal coronary arteries. Left ventricular systolic function at lower limits of normal, ejection fraction 50%.
[2017-12-27] MEDS: COREG PO SCH ×2 (12:21→22:43)
[2017-12-27] MEDS: COZAAR PO SCH (12:21)
[2017-12-27] MEDS: ALDACTONE PO SCH (12:21)
[2017-12-27] MEDS: VITAMIN B-12 PO SCH (12:22)
[2017-12-27] MEDS: SODIUM CHLORIDE FLUSH SYRINGE 10 ML IV SCH ×2 (12:22→23:54)
[2017-12-27] MEDS: VITAMIN C PO SCH (12:23)
--- NOTE | 2017-12-27 12:31 | Cardiac Catherization Report ---
REASON FOR PROCEDURE: The patient is a 62-year-old woman with a history of progressive mitral stenosis, who presented with shortness of breath and evidence of heart failure and pulmonary edema. She was recommended for right and left heart catheterization. PROCEDURES: 1. Right heart catheterization. 2. Left heart catheterization. 3. Left ventricle angiography. 4. Selective left and right coronary angiography. The patient was prepped and draped in a sterile fashion after informed consent. The right femoral artery was entered using Seldinger technique and a 6-Singaporean sheath was inserted. Similarly, an 8-[place]an sheath was inserted into the right femoral vein. A Sel[place]-Heather catheter was then advanced to the pulmonary artery position. A pigtail catheter was advanced into the left ventricle. Simultaneous left and right heart filling pressures were measured. Cardiac output was measured using the thermodilution method. The [place]-Heather catheter was then withdrawn and right heart filling pressures were measured and recorded on pullback. Left ventricle angiography was then performed following which the pigtail catheter was withdrawn across the aortic valve and transaortic pressures were measured. We then performed selective left and right coronary angiography. Following this, the catheters and the sheaths were removed, hemostasis achieved at the arterial site using an Angio-Seal device and at the venous sites using manual compression. The patient was returned to the post-procedure unit in stable condition. There were no complications. FINDINGS: HEMODYNAMICS: The mean right atrial pressure was 18. The right ventricular pressure was 95/20. Pulmonary artery pressure was 95/40. The mean pulmonary artery wedge pressure was 35. Left ventricular end-diastolic pressure was 20-25. Cardiac output was 3.58 liters per minute. The ascending aortic pressure was 150/64. MITRAL STENOSIS: Simultaneous left ventricular and diastolic and pulmonary artery wedge pressures demonstrated a mean mitral valve gradient of 16.5. Using the Gorlin equation, the mitral valve area was calculated at 0.9 square cm. AORTIC STENOSIS: On pullback across the aortic valve, the left ventricular systolic pressure was 157, and the ascending aortic pressure was 150. There was a 7 mm [id number] gradient consistent with very mild aortic stenosis. LEFT VENTRICULAR ANGIOGRAPHY: Left ventricular systolic function was at lower limits of normal with ejection fraction 50%. CORONARY ANGIOGRAPHY: The left main coronary artery was angiographically normal. The left anterior descending artery and its diagonal branches were angiographically normal. The circumflex artery and its obtuse marginal branches were angiographically normal. The right coronary artery was dominant and similarly angiographically normal. CONCLUSION: 1. Moderate elevation of the left heart filling pressures. 2. Severe pulmonary hypertension with pulmonary artery systolic pressures of 95 mmHg. 3. Severe mitral stenosis with a transmitral mean gradient of 16.5, and mitral valve area of 0.9 cm2. 4. Very mild aortic stenosis with a [id number] gradient less than 10 mmHg. 5. Angiographically normal coronary arteries. 6. Left ventricular systolic function at the lower limits of normal, ejection fraction 50%. RECOMMENDATION: Further evaluation and management of mitral stenosis and severe pulmonary hypertension. JOB# [id number] RUBA/ALISON
[2017-12-27] MEDS ORDERED: NACL 0.9% 1000 ML 1,000 ML IV SCH (13:00)
[2017-12-27] MEDS: VITAMIN E CAP PO SCH (18:10)
[2017-12-27] MEDS: PRAVACHOL PO SCH (22:44)
[2017-12-27] MEDS: LANTUS SUB-Q SCH (23:53)
[2017-12-28] MEDS: GLUCOPHAGE PO SCH (05:16)
[2017-12-28 07:51] LABS: Calcium 9.4 mg/dL (8.4-10.2)
[2017-12-28] MEDS: HumaLOG SUB-Q SCH (08:47)
[2017-12-28 09:11] VITALS: BP 133/48
--- NOTE | 2017-12-28 09:54 | Discharge Summary ---
Providers - Providers Date of Admission: 12/24/17 15:21 Date of discharge: 12/28/17 Attending physician: LILLIAM KNUTSON 12/24/17 23:09 Consult to Physician [CONS] Routine Comment: Consulting Provider: LUIS ENRIQUE CELAYA Physician Instructions: Reason For Exam: heart failure 12/27/17 12:03 Consult to Cardiac Rehabilitation [CONS] Routine Reason For Exam: Cardiac Rehab Evaluation Primary care physician: [employer] Hospitalization Reason for admission: diastolic heart failure, mitral valve stenosis and severe pulm. art HTN Condition: Stable Pertinent studies: Chest x-ray that showed evidence of pulmonary artery hypertension Procedures: Chest x-ray showed evidence of pulmonary artery hypertension and atelectasis Cardiac cath - 12/27/17 that showed no evidence of carotid disease Echocardiogram done on 12/24/2017 camila demonstrated diastolic dysfunction with ejection fraction of 50-55% Hospital course: Patient is a 62-year-old lady who is known to me with a history of diastolic heart failure, diabetes mellitus, hypertension, chronic renal failure presented to emergency department on account of significant shortness of breath. Onset was 2 days prior to presentation. However became progressively worse. Has two-pillow orthopnea, dyspnea on slight exertion, and chronic intermittent pedal edema. Denies any chest pain, palpitation or dizziness. Patient also complains of nasal congestion but no postnasal drip, cough or fever. Patient admits to being compliant with her medications. At the emergency department chest x-ray was remarkable for cardiomegaly with possible pulmonary arterial hypertension and bibasilar atelectasis versus scaring. ProBNP was 1688. EKG showed sinus rhythm with a rate of 63/m. No ST segment depression. Creatinine was within normal limits. Admission was requested. Also, some IV Lasix, strict input and out put, daily weight, Beta marianna, ARB and aspirin. Cardiology consult was also obtained. Echocardiogram showed ejection fraction of 50 to 55%. Shortness of breath improved. Cardiac catheterization was done to reevaluate the patient for multiple valvular defect but included mitral stenosis and aortic insufficiency. Coronary arteries were found to be devoid of any occlusion. With, shortness of diuresis BUN and creatinine progressively was increasing with a creatinine of 1.1 on admission to 1.6. BUN also increased from 20-41. Diuresis was held after consultation with detective chief Dr. Pearce. Cautious hydration with 50 mL per hour of normal saline was commenced. Metformin and ARB/ACEI will be held. Patient was advised to discharge because of worsening renal function but he insisted that she most go today because of some family engagement. The risk was discussed with the patient including renal shutdown she still insist that will go home. However a close follow-up was advised with a regular BUN/creatinine monitor and increase fluid intake. She is left with primary care physician in the next working day - 3 days from todays ie on 12/31/[address] Cheng in 5 days. Discharge planning was explained to the patient who expressed understanding Disposition: DC-01 TO HOME OR SELFCARE Time spent for discharge: 38 mins Core Measure Documentation - Palliative Care Palliative Care/ Comfort Measures: Not Applicable - Core Measures Any of the following diagnoses?: heart failure - Heart Failure Discharge Requirements QUINN/ARB for LVSD if EF <40%: Yes Beta marianna at discharge: Yes Heart failure comment: Patient has diastolic heart failure Exam - Physical Exam Narrative exam: Constitutional: Well-nourished well-developed. In no distress Head: Normocephalic atraumatic Eyes: Pupils are equal round and reactive to light Nose: No enlarged turbinates, no septal deviation. Mouth: Moist mucous membranes. Neck: Supple no thyromegaly. No bruit. No JVD Heart: Regular rate and rhythm, S1-S2 abnormal. No rubs murmurs or gallop Lungs: Clear to auscultation bilaterally no rales or rhonchi Abdomen: Soft, nontender. Bowel sound are present. Extremities: Mild pedal edema. No cyanosis and no clubbing. Neuro: Alert oriented Oriented x3. No focal sensory or motor deficit. Skin: No rashes no hyperemic spots Psychiatry: Euthymic. Calm. - Constitutional Vitals: Temp Pulse Resp BP Pulse Ox 98.3 F 65 18 133/48 92 12/28/17 08:35 12/28/17 08:35 12/28/17 08:35 12/28/17 08:35 12/28/17 09:28 Plan Activity: advance as tolerated, fall precautions Weight Bearing Status: Weight Bear as Tolerated Diet: low cholesterol, low salt, diabetic Prescriptions: Aspirin [Aspirin TAB] 325 mg PO QDAY #30 tablet Calcium Carbonate/Vitamin D3 [Calcium 600-Vit D3 800 Tablet] 1 each PO DAILY # 30 tablet Carvedilol [Coreg] 12.5 mg PO BID #60 tablet Cyanocobalamin (Vitamin B-12) [Vitamin B-12] 500 mcg PO DAILY #30 tablet Ferrous Sulfate [Iron] 325 mg PO QDAY #30 tablet Furosemide [Lasix] 20 mg PO QDAY #30 tablet Insulin Detemir [Levemir VIAL] 20 units SUB-Q QHS #300 vial [place]-3/Dha/Epa/Fish Oil [Fish Oil 1,000 mg Softgel] 1 each PO DAILY #30 capsule Pravastatin [Pravachol] 20 mg PO QHS #30 tablet Ranitidine HCl [Acid Generalist] 150 mg PO QDAY #30 tablet Sodium Bicarbonate 650 mg PO BID #60 tablet Spironolactone [Aldactone] 25 mg PO QDAY #30 tablet Vitamin E 400 unit PO QDAY #30 capsule
[2017-12-28] MEDS: VITAMIN C PO SCH (10:44)
[2017-12-28] MEDS: ALDACTONE PO SCH (10:44)
[2017-12-28] MEDS: ASPIRIN PO SCH (10:45)
[2017-12-28] MEDS: COZAAR PO SCH (10:45)
[2017-12-28] MEDS: VITAMIN E CAP PO SCH (10:45)
[2017-12-28] MEDS: FEOSOL PO SCH (10:45)
[2017-12-28] MEDS: COREG PO SCH (10:45)
[2017-12-28] MEDS: VITAMIN B-12 PO SCH (10:45)
[2017-12-28] MEDS: CALTRATE PLUS PO SCH (10:45)
[2017-12-28] MEDS: SODIUM CHLORIDE FLUSH SYRINGE 10 ML IV SCH (10:47)
== END 2017-12-28 13:32 | disposition home health service (06) | DRG 286 ==
LOC: ED 09:13 → 4A 15:21
PROVIDERS: ADMIT Family Medicine; ATTEND Family Medicine
PROC: 4A023N8 Measurement of Cardiac Sampling and Pressure, Bilateral, Percutaneous Approach (ICD-10-PCS; principal; 2017-12-27)
PROC: B2151ZZ Fluoroscopy of Left Heart using Low Osmolar Contrast (ICD-10-PCS; 2017-12-27)
PROC: B2111ZZ Fluoroscopy of Multiple Coronary Arteries using Low Osmolar Contrast (ICD-10-PCS; 2017-12-27)
DX: I13.0 Hypertensive heart and chronic kidney disease with heart failure and stage 1 through stage 4 chronic kidney disease, or unspecified chronic kidney disease (principal); I50.31 Acute diastolic (congestive) heart failure; N17.0 Acute kidney failure with tubular necrosis; E11.22 Type 2 diabetes mellitus with diabetic chronic kidney disease; I35.2 Nonrheumatic aortic (valve) stenosis with insufficiency; I27.20 Pulmonary hypertension, unspecified; Z88.0 Allergy status to penicillin; Z90.710 Acquired absence of both cervix and uterus; Z82.49 Family history of ischemic heart disease and other diseases of the circulatory system; Z79.899 Other long term (current) drug therapy; N18.9 Chronic kidney disease, unspecified
CPT/HCPCS: 36415; 71046; 80053; 82962; 83735; 83880; 84100; 85025; 85379; 85610; 85730; 93005; 93010; 93306; 93460; 96374; A9270-GY; C1760; C1769; C1894; J1644; J1815; J1940; J2250; J3010; J7030; J7040; Q9967

== ENCOUNTER 2018-01-14 08:16 | Outpatient (CLI) | payer MEDICAID ==
--- NOTE | 2018-01-14 15:37 | Cat Scan Report ---
FINAL REPORT EXAM: CT NECK WO CON HISTORY: HYPERPARATHYROIDISM, SECONDARY RENAL TECHNIQUE: CT of the neck was performed without intravenous contrast. Coronal and sagittal reconstructions were included. PRIORS: None. FINDINGS: Parapharyngeal spaces: Normal. Adenoids/tonsils: Normal size. No abscess. Prevertebral soft tissues: No soft tissue swelling. Airway: Patent. Lymph nodes: No pathologically enlarged lymph nodes. Retropharynx: No abscess. Paranasal sinuses: Clear. Parotid and submandibular glands: Normal attenuation. Thyroid gland: No nodules. The thyroid gland is diffusely enlarged and homogeneous. No evidence of parathyroid lesion. Vasculature: Not evaluated due to lack of intravenous contrast. Cervical spine: Intact. Upper thorax: There is a 3 millimeter left upper lobe pulmonary nodule on series 2, image 87. Several prominent upper mediastinal lymph nodes are incompletely imaged. The largest in the right upper paratracheal region measures 2.0 x 1.5 centimeters. IMPRESSION: 1. Diffusely enlarged thyroid gland without discrete nodule identified. No discrete parathyroid adenoma identified. Recommend further evaluation with thyroid ultrasound. 2. 3 millimeter left upper lobe pulmonary nodule. Recommend further evaluation with chest CT with contrast to assess for other pulmonary nodules. 3. Enlarged upper mediastinal lymph nodes may be reactive versus neoplastic. These can be further assessed on the CT of the chest.
--- NOTE | 2018-01-15 08:08 | Nuclear Medicine Report ---
Parathyroid scan: Secondary hyperparathyroidism. Following injection of technetium 99m tagged sestamibi the initial images from the face to the upper chest shows normal physiologic distribution of radionuclide. A similar scan at 2 hours demonstrates normal washout from the thyroid with no residual areas of activity in this location or in the chest. Impression: Normal scan.
== END 2018-01-14 08:17 | disposition home or self-care (01) ==
LOC: CT 08:16
PROVIDERS: ATTEND Internal Medicine Nephrology
DX: N25.81 Secondary hyperparathyroidism of renal origin (principal); E04.9 Nontoxic goiter, unspecified; R91.1 Solitary pulmonary nodule; I11.0 Hypertensive heart disease with heart failure; I50.9 Heart failure, unspecified; E66.9 Obesity, unspecified; D64.9 Anemia, unspecified; E78.00 Pure hypercholesterolemia, unspecified; Z90.710 Acquired absence of both cervix and uterus; Z87.891 Personal history of nicotine dependence
CPT/HCPCS: 70490; 78070; A9500

== ENCOUNTER 2018-11-11 13:07 | Outpatient (CLI) | payer MEDICARE ==
--- NOTE | 2018-11-11 14:24 | Mammography Report ---
Bilateral mammogram: Compared to 11/09/17. CAD study utilized. Findings: Predominance adipose tissue bilaterally. Focal 2 mm asymmetry upper posterior left breast. New calcification in the adjacent region. Normal axilla. Impression: Focal asymmetry in new calcifications left breast. Recommend spot compression and if necessary sonographic examination. BI-RADS CATEGORY: 0 = Needs additional imaging evaluation ACR BI-RADS MAMMOGRAPHIC CODES: 0 = Needs additional imaging evaluation; 1 = Negative; 2 = Benign; 3 = Probably benign; 4 = Suspicious; 5 = Malignant; 6 = Known biopsy-proven malignancy COMMENT: 1. Dense breast tissue, i.e., adenosis, fibrocystic changes, etc., may obscure an underlying neoplasm. 2. Approximately 10% of cancers are not detected with mammography. 3. A negative mammography report should not delay biopsy if a clinically suspicious mass is present. COMMENT: Patient follow-up letters are generated in [employer].
== END 2018-11-11 13:08 | disposition home or self-care (01) ==
LOC: MAMMO 13:07
DX: Z12.31 Encounter for screening mammogram for malignant neoplasm of breast (principal); I11.0 Hypertensive heart disease with heart failure; I50.9 Heart failure, unspecified; E66.9 Obesity, unspecified; E78.00 Pure hypercholesterolemia, unspecified
CPT/HCPCS: 77067

== ENCOUNTER 2018-12-17 12:54 | Outpatient (CLI) | payer MEDICARE ==
--- NOTE | 2018-12-17 13:36 | Mammography Report ---
LEFT DIGITAL DIAGNOSTIC MAMMOGRAM : 12/17/18 12:54:00 CLINICAL: Recalled for asymmetry and calcifications. COMPARISON:11/11/18 screening FINDINGS: Additional mammographic views were performed and are negative.Satisfactory placement of asymmetry. A few benign benign calcifications. IMPRESSION: No mammographic evidence of malignancy. BI-RADS CATEGORY: 2 - - Benign RECOMMENDATION: Routine mammographic screening in one year. COMMENT: 1. Dense breast tissue, i.e., adenosis, fibrocystic changes, etc., may obscure an underlying neoplasm. 2. Approximately 10% of cancers are not detected with mammography. 3. A negative mammography report should not delay biopsy if a clinically suspicious mass is present. COMMENT: Patient follow-up letters are generated via our [employer] application.
== END 2018-12-17 12:55 | disposition home or self-care (01) ==
LOC: MAMMO 12:54
DX: R92.8 Other abnormal and inconclusive findings on diagnostic imaging of breast (principal); I11.0 Hypertensive heart disease with heart failure; I50.9 Heart failure, unspecified; E66.9 Obesity, unspecified; E78.00 Pure hypercholesterolemia, unspecified

== ENCOUNTER 2020-06-18 17:15 | Inpatient (IN) | payer OTHER, MEDICARE ==
--- NOTE | 2020-06-18 17:33 | Event Note ---
ED Screening Note Date of service: 06/18/20 Time: 17:32 ED Screening Note: 65-year-old -Russian female with a history of CHF hypertension diabetes renal disease presents to the emergency room complaining of shortness of breath and bilateral lower leg edema. This initial assessment/diagnostic orders/clinical plan/treatment(s) is/are subject to change based on patients health status, clinical progression and re- assessment by fellow clinical providers in the ED. Further treatment and workup at subsequent clinical providers discretion. Patient/guardian urged not to elope from the ED as their condition may be serious if not clinically assessed and managed. Initial orders include:
--- NOTE | 2020-06-18 17:57 | XRay Report ---
CHEST 2 VIEWS INDICATION / CLINICAL INFORMATION: S OB with a history of CHF. FINDINGS: SUPPORT DEVICES: None. HEART / MEDIASTINUM: Cardiomegaly. LUNGS / PLEURA: Mild bilateral interstitial edema. Signer Name: Antonio Wynn MD Signed: 06/18/2020 5:53 PM Workstation Name: [id number]
[2020-06-18 18:52] LABS: Calcium 9.3 mg/dL (8.4-10.2)
[2020-06-18 18:55] LABS: Basophils % (Auto) 0.6 % (0.0-1.8); Eosinophils # (Auto) 0.1 K/mm3 (0.0-0.4); Hematocrit 38.6 % (30.3-42.9); Hemoglobin 12.9 gm/dl (10.1-14.3); Lymphocytes % (Auto) 12.6 % (13.4-35.0); Mean Corpuscular HGB Conc 34 % (30-34); Mean Corpuscular Volume 85 fl (79-97); Monocytes # (Auto) 0.6 K/mm3 (0.0-0.8); Monocytes % (Auto) 7.4 % (0.0-7.3); Red Blood Count 4.54 M/mm3 (3.65-5.03); Red Cell Distribution Width 17.6 % (13.2-15.2)
[2020-06-18 19:23] LABS: Platelet Count 171 K/mm3 (140-440)
--- NOTE | 2020-06-19 05:13 | Emergency Department Report ---
ED Shortness of Breath HPI - General Chief Complaint: Dyspnea/Respdistress Stated Complaint: CONGESTION HEART FAILURE Time Seen by Provider: 06/19/20 05:04 Source: patient Mode of arrival: Ambulatory Limitations: No Limitations - History of Present Illness Initial Comments: Patient is a 65-year-old female presents emergency room with complaints of short ness of breath and edema. Patient states she has history of CHF. Patient states her symptoms started 2 days ago. Patient rates her symptoms are worsening. He states she is also having dyspnea on exertion. Patient states her shortness of breath is better with rest and worse with exertion. Patient denies fever and chills. Patient denies cough. Patient denies chest pain. Patient denies nausea vomiting. Patient denies diaphoresis. Patient denies recent travel. Patient denies recent international travel. Patient denies exposure to the novel coronavirus. Patient denies sick contacts. Patient denies fever and chills. Patient denies cough. Patient denies diarrhea. Patient denies coming in contact with anybody with symptoms of the novel coronavirus. MD Complaint: shortness of breath -: Sudden Severity: severe Improves With: rest Worsens With: exertion Known History Of: congestive heart failure Associated Symptoms: orhopnia Treatments Prior to Arrival: none - Related Data Home Oxygen Therapy: No Home Medications Medication Instructions Recorded Confirmed Last Taken Ascorbic Acid [Vitamin C] 500 mg PO DAILY 12/24/17 09/13/19 09/13/19 Calcium Carbonate/Vitamin D3 1 each PO DAILY 09/13/19 09/13/19 09/13/19 [Caltrate 600 Plus D3 Tablet] Cinnamon Bark [Cinnamon] 500 mg PO DAILY 09/13/19 09/13/19 09/13/19 Glimepiride [Amaryl] 4 mg PO BID 09/13/19 09/13/19 09/13/19 Losartan Potassium 50 mg PO DAILY 09/13/19 09/13/19 09/13/19 Mecobalamin [B12 Active] 1,000 mcg PO DAILY 09/13/19 09/13/19 09/13/19 Omeprazole 40 mg PO BID 09/13/19 09/13/19 09/13/19 Insulin Degludec [Tresiba] 20 units SUB-Q HS 09/16/19 09/16/19 09/12/19 Previous Rx's Medication Instructions Recorded Last Taken Type Aspirin 325 mg PO QDAY #30 tablet 12/28/17 09/13/19 Rx Carvedilol [Coreg] 12.5 mg PO BID #60 tablet 12/28/17 09/13/19 Rx Cyanocobalamin (Vitamin B-12) 500 mcg PO DAILY #30 tablet 12/28/17 09/13/19 Rx [Vitamin B-12] Ferrous Sulfate [Iron 325 MG] 325 mg PO QDAY #30 tablet 12/28/17 09/13/19 Rx Furosemide [Lasix] 20 mg PO QDAY #30 tablet 12/28/17 09/13/19 Rx [place]-3/Dha/Epa/Fish Oil [Fish Oil 1 each PO DAILY #30 capsule 12/28/17 09/13/19 Rx 1,000 mg Softgel] Pravastatin [Pravachol] 20 mg PO QHS #30 tablet 12/28/17 09/12/19 Rx Sodium Bicarbonate 650 mg PO BID #60 tablet 12/28/17 09/13/19 Rx Spironolactone [Aldactone] 25 mg PO QDAY #30 tablet 12/28/17 09/13/19 Rx Tocopherol [Vitamin E Cap] 400 unit PO QDAY capsule 12/28/17 09/12/19 Rx Vitamin E 400 unit PO QDAY #30 capsule 12/28/17 09/13/19 Rx Cetirizine HCl [ZyrTEC 10mg cap] 10 mg PO QDAY 14 Days #14 capsule 07/03/18 09/13/19 Rx Allergies Allergy/AdvReac Type Severity Reaction Status Date / Time Penicillins AdvReac Swelling Unverified 08/08/13 16:23 ED Review of Systems ROS: Stated complaint: CONGESTION HEART FAILURE Other details as noted in HPI Constitutional: denies: chills, fever Eyes: denies: eye pain, eye discharge, vision change ENT: denies: ear pain, throat pain Respiratory: shortness of breath, SOB with exertion, SOB at rest. denies: cough, wheezing Cardiovascular: dyspnea on exertion, edema. denies: chest pain, palpitations Endocrine: no symptoms reported Gastrointestinal: denies: abdominal pain, nausea, diarrhea Genitourinary: denies: urgency, dysuria, discharge Musculoskeletal: denies: back pain, joint swelling, arthralgia Skin: denies: rash, lesions Neurological: denies: headache, weakness, paresthesias Psychiatric: denies: anxiety, depression Hematological/Lymphatic: denies: easy bleeding, easy bruising ED Past Medical Hx - Past Medical History Previous Medical History?: Yes Hx Hypertension: Yes Hx Congestive Heart Failure: Yes Hx Diabetes: Yes Hx Renal Disease: Yes Hx Asthma: No Hx COPD: No Hx HIV: No - Surgical History Past Surgical History?: Yes Additional Surgical History: hysterectomy - Social History Smoking Status: Former Smoker Substance Use Type: None - Medications Home Medications: Home Medications Medication Instructions Recorded Confirmed Last Taken Type Ascorbic Acid [Vitamin C] 500 mg PO DAILY 12/24/17 09/13/19 09/13/19 History Aspirin 325 mg PO QDAY #30 tablet 12/28/17 09/13/19 09/13/19 Rx Carvedilol [Coreg] 12.5 mg PO BID #60 tablet 12/28/17 09/13/19 09/13/19 Rx Cyanocobalamin (Vitamin B-12) 500 mcg PO DAILY #30 tablet 12/28/17 09/13/19 09/13/19 Rx [Vitamin B-12] Ferrous Sulfate [Iron 325 MG] 325 mg PO QDAY #30 tablet 12/28/17 09/13/19 09/13/19 Rx Furosemide [Lasix] 20 mg PO QDAY #30 tablet 12/28/17 09/13/19 09/13/19 Rx [place]-3/Dha/Epa/Fish Oil [Fish Oil 1 each PO DAILY #30 capsule 12/28/17 09/13/19 09/13/19 Rx 1,000 mg Softgel] Pravastatin [Pravachol] 20 mg PO QHS #30 tablet 12/28/17 09/13/19 09/12/19 Rx Sodium Bicarbonate 650 mg PO BID #60 tablet 12/28/17 09/13/19 09/13/19 Rx Spironolactone [Aldactone] 25 mg PO QDAY #30 tablet 12/28/17 09/13/19 09/13/19 Rx Tocopherol [Vitamin E Cap] 400 unit PO QDAY capsule 12/28/17 09/13/19 09/12/19 Rx Vitamin E 400 unit PO QDAY #30 capsule 12/28/17 09/13/19 09/13/19 Rx Cetirizine HCl [ZyrTEC 10mg cap] 10 mg PO QDAY 14 Days #14 capsule 07/03/18 09/13/19 09/13/19 Rx Calcium Carbonate/Vitamin D3 1 each PO DAILY 09/13/19 09/13/19 09/13/19 History [Caltrate 600 Plus D3 Tablet] Cinnamon Bark [Cinnamon] 500 mg PO DAILY 09/13/19 09/13/19 09/13/19 History Glimepiride [Amaryl] 4 mg PO BID 09/13/19 09/13/19 09/13/19 History Losartan Potassium 50 mg PO DAILY 09/13/19 09/13/19 09/13/19 History Mecobalamin [B12 Active] 1,000 mcg PO DAILY 09/13/19 09/13/19 09/13/19 History Omeprazole 40 mg PO BID 09/13/19 09/13/19 09/13/19 History Insulin Degludec [Tresiba] 20 units SUB-Q HS 09/16/19 09/16/19 09/12/19 History ED Physical Exam - General Limitations: No Limitations General appearance: alert, in no apparent distress - Head Head exam: Present: atraumatic, normocephalic - Eye Eye exam: Present: normal appearance - ENT ENT exam: Present: mucous membranes moist - Neck Neck exam: Present: normal inspection - Respiratory Respiratory exam: Present: normal lung sounds bilaterally. Absent: respiratory distress - Cardiovascular Cardiovascular Exam: Present: regular rate, normal rhythm. Absent: systolic murmur, diastolic murmur, rubs, gallop - GI/Abdominal GI/Abdominal exam: Present: soft, normal bowel sounds - Extremities Exam Extremities exam: Present: full ROM, pedal edema. Absent: tenderness, calf tenderness - Back Exam Back exam: Present: normal inspection - Neurological Exam Neurological exam: Present: alert, oriented X3 - Psychiatric Psychiatric exam: Present: normal affect, normal mood - Skin Skin exam: Present: warm, dry, intact, normal color. Absent: rash ED Course Vital Signs 06/18/20 17:18 Temperature 97.8 F Pulse Rate 84 Respiratory 16 Rate Blood Pressure 148/47 [Right] O2 Sat by Pulse 99 Oximetry - Reevaluation(s) Reevaluation #1: I discussed all results with patient. I discussed plan of care with patient. Patient agrees with plan of care and admission. Patient to be admitted to the hospitalist service. 06/19/20 05:30 - Consultations Consultation #1: Hospitalist consulted for admission. Hospitalist to admit patient. 06/19/20 05:15 ED Medical Decision Making - Lab Data Result diagrams: 06/18/20 17:59 06/18/20 17:59 - EKG Data -: EKG Interpreted by Me EKG shows normal: sinus rhythm, axis, intervals, QRS complexes, ST-T waves - Radiology Data Radiology results: report reviewed, image reviewed CHEST 2 VIEWS INDICATION / CLINICAL INFORMATION: S OB with a history of CHF. FINDINGS: SUPPORT DEVICES: None. HEART / MEDIASTINUM: Cardiomegaly. LUNGS / PLEURA: Mild bilateral interstitial edema. - Medical Decision Making Patient is 65-year-old female that presents emergency room with complaints of shortness of breath and edema. Patient history of CHF. Patient had labs done which showed an elevated BNP. Patient had a chest x-ray which showed pulmonary edema. Patient given IV Lasix in the ER. Patient had an EKG which shows no STEMI. Patient admitted to the hospitalist service for further evaluation treatment. - Differential Diagnosis SLB, RODRIGUEZ, CHF, edema, Critical Care Time: Yes Critical care time in (mins) excluding proc time.: 35 Critical care attestation.: If time is entered above; I have spent that time in minutes in the direct care of this critically ill patient, excluding procedure time. Critical Care Time: 35 minutes ED Disposition Clinical Impression: SOB (shortness of breath), RODRIGUEZ (dyspnea on exertion) CHF exacerbation Qualifiers: Heart failure type: unspecified Qualified Code(s): I50.9 - Heart failure, unspecified Disposition: DC-09 OP ADMIT IP TO THIS HOSP Is pt being admited?: Yes Does the pt Need Aspirin: No Condition: Critical Time of Disposition: 05:40
[2020-06-19] MEDS ORDERED: FUROSEMIDE 40 MG/4 ML INJ IV ONE (05:14)
[2020-06-19] MEDS ORDERED: MORPHINE 2 MG/1 ML INJ IV PRN (05:51)
[2020-06-19] MEDS ORDERED: DEXTROSE 50% IN WATER (25GM) 50 ML SYRINGE IV PRN (05:51)
[2020-06-19] MEDS ORDERED: ONDANSETRON 4 MG/2 ML INJ IV PRN (05:51)
[2020-06-19] MEDS ORDERED: ACETAMINOPHEN 325 MG TAB PO PRN (05:51)
[2020-06-19] MEDS ORDERED: MAGNESIUM HYDROXIDE (MOM) ORAL LIQD UDC PO PRN (05:51)
--- NOTE | 2020-06-19 06:05 | History and Physical Report ---
History of Present Illness Date of examination: 06/19/20 Date of admission: 06/19/20 05:15 Chief complaint: Shortness of breath Lower extremity swelling History of present illness: 68-year-old -[place] female with known history of hypertension, CHF, chronic kidney disease and diabetes mellitus presenting to the urgency room today complaining of shortness of breath and swelling in her lower extremities which has been ongoing for the past 2 days. She has also been having some dyspnea on exertion. She denies any chest pain, no fever or chills, no nausea vomiting, no abdominal pain or diarrhea, denies any cough, denies any headache or dizziness. Patient denies any sick contacts and no recent travel, denies any contact with anyone with COVID-19. 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 She had an echocardiogram sometime in September 2019 with an ejection fraction of 50 to 55%. Patient however indicates that she has not been quite compliant with her diet lately she has been eating a lot of salt during the and early part of this month when she celebrated her birthday. Work-up in the emergency room today reveals elevated BNP, chest x-ray also shows pulmonary edema. There was slight worsening of her creatinine from her ba seline. Patient is being admitted for CHF exacerbation, acute on chronic kidney failure. Past History Past Medical History: diabetes, hypertension, renal failure Past Surgical History: hysterectomy Social history: smoking (Former smoker) Family history: no significant family history Medications and Allergies Allergies Allergy/AdvReac Type Severity Reaction Status Date / Time Penicillins AdvReac Swelling Unverified 08/08/13 16:23 Home Medications Medication Instructions Recorded Confirmed Last Taken Type Ascorbic Acid [Vitamin C] 500 mg PO DAILY 12/24/17 09/13/19 09/13/19 History Aspirin 325 mg PO QDAY #30 tablet 12/28/17 09/13/19 09/13/19 Rx Carvedilol [Coreg] 12.5 mg PO BID #60 tablet 12/28/17 09/13/19 09/13/19 Rx Cyanocobalamin (Vitamin B-12) 500 mcg PO DAILY #30 tablet 12/28/17 09/13/19 09/13/19 Rx [Vitamin B-12] Ferrous Sulfate [Iron 325 MG] 325 mg PO QDAY #30 tablet 12/28/17 09/13/1909/12/20 Rx Furosemide [Lasix] 20 mg PO QDAY #30 tablet 12/28/17 09/13/19 09/13/19 Rx [place]-3/Dha/Epa/Fish Oil [Fish Oil 1 each PO DAILY #30 capsule 12/28/17 09/13/19 09/13/19 Rx 1,000 mg Softgel] Pravastatin [Pravachol] 20 mg PO QHS #30 tablet 12/28/17 09/13/19 09/12/19 Rx Sodium Bicarbonate 650 mg PO BID #60 tablet 12/28/17 09/13/19 09/13/19 Rx Spironolactone [Aldactone] 25 mg PO QDAY #30 tablet 12/28/17 09/13/19 09/13/19 Rx Tocopherol [Vitamin E Cap] 400 unit PO QDAY capsule 12/28/17 09/13/19 09/12/19 Rx Vitamin E 400 unit PO QDAY #30 capsule 12/28/17 09/13/19 09/13/19 Rx Cetirizine HCl [ZyrTEC 10mg cap] 10 mg PO QDAY 14 Days #14 capsule 07/03/18 09/13/19 09/13/19 Rx Calcium Carbonate/Vitamin D3 1 each PO DAILY 09/13/19 09/13/19 09/13/19 History [Caltrate 600 Plus D3 Tablet] Cinnamon Bark [Cinnamon] 500 mg PO DAILY 09/13/19 09/13/19 09/13/19 History Glimepiride [Amaryl] 4 mg PO BID 09/13/19 09/13/19 09/13/19 History Losartan Potassium 50 mg PO DAILY 09/13/19 09/13/19 09/13/19 History Mecobalamin [B12 Active] 1,000 mcg PO DAILY 09/13/19 09/13/19 09/13/19 History Omeprazole 40 mg PO BID 09/13/19 09/13/19 09/13/19 History Insulin Degludec [Tresiba] 20 units SUB-Q HS 09/16/19 09/16/19 09/12/19 History Active Meds: Active Medications Acetaminophen (Acetaminophen 325 Mg Tab) 650 mg PO Q4H PRN PRN Reason: Pain MILD(1-3)/Fever >100.5/COULTER Dextrose (Dextrose 50% In Water (25gm) 50 Ml Syringe) 50 ml IV Q30MIN PRN; Protocol PRN Reason: Hypoglycemia Dextrose (Dextrose 50% In Water (25gm) 50 Ml Syringe) 50 ml IV Q30MIN PRN; Protocol PRN Reason: Hypoglycemia Furosemide (Furosemide 40 Mg/4 Ml Inj) 40 mg IV BID@0600,1800 [facility] Heparin Sodium (Porcine) (Heparin 5,000 Unit/1 Ml Vial) 5,000 unit SUB-Q Q8HR POOL Insulin Human Regular (Insulin Regular, Human 100 Unit/Ml 3ml Vial) 0 unit SUB- Q ACHS POOL; Protocol Magnesium Hydroxide (Magnesium Hydroxide (Mom) Oral Liqd Udc) 30 ml PO Q4H PRN PRN Reason: Constipation Morphine Sulfate (Morphine 2 Mg/1 Ml Inj) 2 mg IV Q4H PRN PRN Reason: Pain, Moderate (4-6) Ondansetron HCl (Ondansetron 4 Mg/2 Ml Inj) 4 mg IV Q8H PRN PRN Reason: Nausea And Vomiting Sodium Chloride (Sodium Chloride 0.9% 10 Ml Flush Syringe) 10 ml IV BID [facility] Sodium Chloride (Sodium Chloride 0.9% 10 Ml Flush Syringe) 10 ml IV PRN PRN PRN Reason: LINE FLUSH Review of Systems Constitutional: no fever, no chills Ears, nose, mouth and throat: no nasal congestion, no sore throat Cardiovascular: edema, dyspnea on exertion, no chest pain, no palpitations Respiratory: shortness of breath, no cough, no wheezing Gastrointestinal: no abdominal pain, no nausea, no vomiting, no diarrhea Genitourinary Female: no pelvic pain, no flank pain, no dysuria, no hematuria Musculoskeletal: no neck pain, no low back pain Integumentary: no rash, no pruritis Neurological: no headaches, no confusion Psychiatric: no anxiety, no depression Exam - Constitutional Vitals: Temp Pulse Resp BP Pulse Ox 97.8 F 84 16 148/47 99 06/18/20 17:18 06/18/20 17:18 06/18/20 17:18 06/18/20 17:18 06/18/20 17:18 General appearance: Present: no acute distress, well-nourished - EENT Eyes: Present: PERRL, EOM intact. Absent: scleral icterus ENT: hearing intact, clear oral mucosa, dentition normal - Neck Neck: Present: supple, normal ROM - Respiratory Respiratory effort: normal Respiratory: bilateral: rales - Cardiovascular Rhythm: regular Heart Sounds: Present: S1 & S2. Absent: gallop, systolic murmur, diastolic murmur, rub - Extremities Extremities: no ischemia, pulses intact, pulses symmetrical, Full ROM Extremity abnormal: edema (1+ bilateral lower extremity edema) Peripheral Pulses: within normal limits - Abdominal General gastrointestinal: Present: soft, non-tender, non-distended, normal bowel sounds. Absent: mass - Integumentary Integumentary: Present: clear, warm, dry. Absent: rash - Musculoskeletal Musculoskeletal: strength equal bilaterally - Psychiatric Psychiatric: appropriate mood/affect, intact judgment & insight, memory intact, cooperative - Neurologic Neurologic: CNII-XII intact, no focal deficits, moves all extremities Results - Labs CBC & Chem 7: 06/18/20 17:59 06/18/20 17:59 Labs: Abnormal lab results 06/18/20 06/18/20 Range/Units 17:59 17:59 RDW 17.6 H (13.2-15.2) % Lymph % (Auto) 12.6 L (13.4-35.0) % [place] % (Auto) 7.4 H (0.0-7.3) % Lymph # (Auto) 1.0 L (1.2-5.4) K/mm3 Seg Neutrophils % 78.4 H (40.0-70.0) % Carbon Dioxide 21 L (22-30) mmol/L BUN 30 H (7-17) mg/dL Creatinine 1.8 H (0.6-1.2) mg/dL Glucose 165 H (65-100) mg/dL Alkaline Phosphatase 291 H (35-129) units/L NT-Pro-B Natriuret Pep 5070 H (0-900) pg/mL Assessment and Plan - Patient Problems (1) CHF exacerbation Current Visit: Yes Status: Acute Qualifiers: Heart failure type: unspecified Qualified Code(s): I50.9 - Heart failure, unspecified Plan to address problem: Patient placed on diuretics. Will monitor inputs and outputs and also monitor daily weight. Echocardiogram done in September 2019 shows an ejection fraction of 50 to 55%. Patient follows up with Dr. Johnson. (2) HTN (hypertension) Current Visit: No Status: Acute Qualifiers: Hypertension type: essential hypertension Qualified Code(s): I10 - Essential (primary) hypertension Plan to address problem: We will resume routine home medications and monitor vital signs closely. (3) Renal failure (ARF), acute on chronic Current Visit: Yes Status: Acute Plan to address problem: We will place a consult to nephrology for evaluation and recommendation. Will monitor BUN and creatinine. (4) DVT prophylaxis Current Visit: No Status: Acute Plan to address problem: Patient placed on subcutaneous heparin. (5) Full code status Current Visit: Yes Status: Acute
[2020-06-19] MEDS: FUROSEMIDE 40 MG/4 ML INJ IV SCH ×2 (06:15→17:35)
[2020-06-19] MEDS: HEPARIN 5,000 UNIT/1 ML VIAL SUB-Q SCH ×3 (06:57→22:55)
[2020-06-19] MEDS: INSULIN REGULAR, HUMAN 100 UNIT/ML 3ML VIAL SUB-Q SCH ×4 (07:48→22:54)
--- NOTE | 2020-06-19 08:19 | Consultation ---
History of Present Illness Consult date: 06/19/20 Consult reason: congestive heart failure History of present illness: 65 year old female presenting with worsening shortness of breath and edema. Patient is compliant with all her medications at home. Patient is known to have severe mitral stenosis and is followed by Dr Johnson as outpatient. Past History Past Medical History: diabetes, hypertension, renal failure Past Surgical History: hysterectomy Social history: smoking (Former smoker) Family history: no significant family history Medications and Allergies Allergies Allergy/AdvReac Type Severity Reaction Status Date / Time Penicillins AdvReac Swelling Unverified 08/08/13 16:23 Home Medications Medication Instructions Recorded Confirmed Last Taken Type Ascorbic Acid [Vitamin C] 500 mg PO DAILY 12/24/17 09/13/19 09/13/19 History Aspirin 325 mg PO QDAY #30 tablet 12/28/17 09/13/19 09/13/19 Rx Carvedilol [Coreg] 12.5 mg PO BID #60 tablet 12/28/17 09/13/19 09/13/19 Rx Cyanocobalamin (Vitamin B-12) 500 mcg PO DAILY #30 tablet 12/28/17 09/13/19 09/13/19 Rx [Vitamin B-12] Ferrous Sulfate [Iron 325 MG] 325 mg PO QDAY #30 tablet 12/28/17 09/13/19 09/13/19 Rx Furosemide [Lasix] 20 mg PO QDAY #30 tablet 12/28/17 09/13/19 09/13/19 Rx [place]-3/Dha/Epa/Fish Oil [Fish Oil 1 each PO DAILY #30 capsule 12/28/17 09/13/19 09/13/19 Rx 1,000 mg Softgel] Pravastatin [Pravachol] 20 mg PO QHS #30 tablet 12/28/17 09/13/19 09/12/19 Rx Sodium Bicarbonate 650 mg PO BID #60 tablet 12/28/17 09/13/19 09/13/19 Rx Spironolactone [Aldactone] 25 mg PO QDAY #30 tablet 12/28/17 09/13/19 09/13/19 Rx Tocopherol [Vitamin E Cap] 400 unit PO QDAY capsule 12/28/17 09/13/19 09/12/19 Rx Vitamin E 400 unit PO QDAY #30 capsule 12/28/17 09/13/19 09/13/19 Rx Cetirizine HCl [ZyrTEC 10mg cap] 10 mg PO QDAY 14 Days #14 capsule 07/03/18 09/13/19 09/13/19 Rx Calcium Carbonate/Vitamin D3 1 each PO DAILY 09/13/19 09/13/19 09/13/19 History [Caltrate 600 Plus D3 Tablet] Cinnamon Bark [Cinnamon] 500 mg PO DAILY 09/13/19 09/13/19 09/13/19 History Glimepiride [Amaryl] 4 mg PO BID 09/13/19 09/13/19 09/13/19 History Losartan Potassium 50 mg PO DAILY 09/13/19 09/13/19 09/13/19 History Mecobalamin [B12 Active] 1,000 mcg PO DAILY 09/13/19 09/13/19 09/13/19 History Omeprazole 40 mg PO BID 09/13/19 09/13/19 09/13/19 History Insulin Degludec [Tresiba] 20 units SUB-Q 09/16/19 09/16/19 09/12/19 History Active Meds: Active Medications Acetaminophen (Acetaminophen 325 Mg Tab) 650 mg PO Q4H PRN PRN Reason: Pain MILD(1-3)/Fever >100.5/COULTER Dextrose (Dextrose 50% In Water (25gm) 50 Ml Syringe) 0 ml IV Q30MIN PRN; Protocol PRN Reason: Hypoglycemia Furosemide (Furosemide 40 Mg/4 Ml Inj) 40 mg IV BID@0600,1800 [facility] Last Admin: 06/19/20 06:15 Dose: 40 mg Documented by: Heparin Sodium (Porcine) (Heparin 5,000 Unit/1 Ml Vial) 5,000 unit SUB-Q Q8HR [facility] Last Admin: 06/19/20 06:57 Dose: Not Given Documented by: Insulin Human Regular (Insulin Regular, Human 100 Unit/Ml 3ml Vial) 0 unit SUB- Q [facility]; Protocol Last Admin: 06/19/20 07:48 Dose: Not Given Documented by: Magnesium Hydroxide (Magnesium Hydroxide (Mom) Oral Liqd Udc) 30 ml PO Q4H PRN PRN Reason: Constipation Morphine Sulfate (Morphine 2 Mg/1 Ml Inj) 2 mg IV Q4H PRN PRN Reason: Pain, Moderate (4-6) Ondansetron HCl (Ondansetron 4 Mg/2 Ml Inj) 4 mg IV Q8H PRN PRN Reason: Nausea And Vomiting Sodium Chloride (Sodium Chloride 0.9% 10 Ml Flush Syringe) 10 ml IV BID POOL Sodium Chloride (Sodium Chloride 0.9% 10 Ml Flush Syringe) 10 ml IV PRN PRN PRN Reason: LINE FLUSH Review of Systems All systems: negative Physical Examination Vital Signs Temp Pulse Resp BP Pulse Ox 97.8 F 84 16 148/47 99 06/18/20 17:18 06/18/20 17:18 06/18/20 17:18 06/18/20 17:18 06/18/20 17:18 General appearance: no acute distress HEENT: Positive: PERRL Neck: Positive: neck supple, JVD/HJR Cardiac: Positive: irregularly irregular Lungs: Positive: Decreased Breath Sounds Abdomen: Positive: Soft Extremities: Present: edema Results 06/18/20 17:59 06/18/20 17:59 Cardiac Enzymes 06/18/20 Range/Units 17:59 AST 18 (5-40) units/L CBC 06/18/20 Range/Units 17:59 WBC 7.6 (4.5-11.0) K/mm3 RBC 4.54 (3.65-5.03) M/mm3 Hgb 12.9 (10.1-14.3) gm/dl Hct 38.6 (30.3-42.9) % Plt Count 171 (140-440) K/mm3 Lymph # (Auto) 1.0 L (1.2-5.4) K/mm3 [place] # (Auto) 0.6 (0.0-0.8) K/mm3 Eos # (Auto) 0.1 (0.0-0.4) K/mm3 Baso # (Auto) 0.0 (0.0-0.1) K/mm3 Comprehensive Metabolic Panel 06/18/20 Range/Units 17:59 Sodium 138 (137-145) mmol/L Potassium 3.8 (3.6-5.0) mmol/L Chloride 101.9 (98-107) mmol/L Carbon Dioxide 21 L (22-30) mmol/L BUN 30 H (7-17) mg/dL Creatinine 1.8 H (0.6-1.2) mg/dL Glucose 165 H (65-100) mg/dL Calcium 9.3 (8.4-10.2) mg/dL AST 18 (5-40) units/L ALT 23 (7-56) units/L Alkaline Phosphatase 291 H (35-129) units/L Total Protein 7.3 (6.3-8.2) g/dL Albumin 4.0 (3.9-5) g/dL - EKG Interpretation EKG shows: atrial fibrillation EKG interpretations - Telemetry EKG Rhythm: Atrial Fibrillation Assessment and Plan Acute on chronic diastolic heart failure Severe mitral stenosis with severe pulmonary hypertension Permanent atrial fibrillation Acute renal failure Essential primary hypertension Recommendations: Continue IV diuresis Resume po home carvedilol 12.5 mg bid and pravastatin Hold losartan and aldactone due to acute renal failure Hold warfarin and start IV heparin once INR < 2 Discontinue amiodarone as patient is in permanent atrial fibrillation Patient seems to be agreeable now to proceed with mitral valve surgery. Patient has ACC/AHA class I indication for surgical mitral valve replacement Patient would like to discuss plan with Dr Johnson on Sunday prior to transfer to tertiary [facility]
[2020-06-19 11:16] LABS: INR 2.07 (0.87-1.13)
[2020-06-19] MEDS: ASPIRIN 325 MG TAB PO SCH (12:22)
[2020-06-19] MEDS: carvediloL 6.25 MG TAB PO SCH ×2 (12:27→22:53)
[2020-06-19] MEDS: ASCORBIC ACID 500 MG TAB PO SCH (12:27)
--- NOTE | 2020-06-19 13:32 | Event Note ---
Date: 06/19/[address] Dooley, will switch consult to his group.
--- NOTE | 2020-06-19 16:21 | Event Note ---
Date: 06/19/20 patient seen and examined cont iv diuretics for CHF exacerbation, INR therapeutic will resume coumadin cont current care follow BMP
[2020-06-19] MEDS ORDERED: WARFARIN 2.5 MG TAB PO SCH (17:00)
[2020-06-19] MEDS: PRAVASTATIN 20 MG TAB PO SCH (22:53)
[2020-06-20] MEDS: FUROSEMIDE 40 MG/4 ML INJ IV SCH ×2 (06:12→17:18)
[2020-06-20] MEDS: HEPARIN 5,000 UNIT/1 ML VIAL SUB-Q SCH (06:12)
[2020-06-20 06:40] LABS: Basophils % (Auto) 0.6 % (0.0-1.8); Eosinophils # (Auto) 0.1 K/mm3 (0.0-0.4); Eosinophils % (Auto) 1.8 % (0.0-4.3); Hematocrit 37.9 % (30.3-42.9); Hemoglobin 12.4 gm/dl (10.1-14.3); Lymphocytes # (Auto) 0.7 K/mm3 (1.2-5.4); Lymphocytes % (Auto) 11.1 % (13.4-35.0); Mean Corpuscular HGB Conc 33 % (30-34); Mean Corpuscular Volume 85 fl (79-97); Monocytes # (Auto) 0.6 K/mm3 (0.0-0.8); Monocytes % (Auto) 9.5 % (0.0-7.3); Red Blood Count 4.45 M/mm3 (3.65-5.03); Red Cell Distribution Width 17.5 % (13.2-15.2)
[2020-06-20 06:50] LABS: INR 1.85 (0.87-1.13)
[2020-06-20 06:57] LABS: Calcium 9.6 mg/dL (8.4-10.2)
[2020-06-20 07:46] LABS: Platelet Count 170 K/mm3 (140-440)
[2020-06-20] MEDS: INSULIN REGULAR, HUMAN 100 UNIT/ML 3ML VIAL SUB-Q SCH ×4 (08:15→22:47)
--- NOTE | 2020-06-20 10:07 | Progress Note ---
Assessment and Plan Acute on chronic diastolic heart failure Severe mitral stenosis with severe pulmonary hypertension Permanent atrial fibrillation Acute renal failure Essential primary hypertension Recommendations: Continue IV diuresis during this hospitalization (patient is still volume overloaded) Hold losartan and aldactone due to acute renal failure Resume po warfarin Patient seems to be agreeable now to proceed with mitral valve surgery. Patient has ACC/AHA class I indication for surgical mitral valve replacement Discussed case with sister over the phone. They both want outpatient surgical evaluation for MVR. Therefore our office will take care of that in the future Subjective Date of service: 06/20/20 Principal diagnosis: CHF Interval history: Patient states that she is feeling better today. Shortness of breath and edema improving Objective Vital Signs Temp Pulse Resp BP Pulse Ox 06/20/20 07:29 97.8 F 72 18 131/71 97 06/20/20 04:22 98.1 F 81 16 137/60 94 06/19/20 23:50 97.7 F 68 16 145/44 97 06/19/20 23:00 76 06/19/20 22:53 75 145/57 06/19/20 19:47 97.5 F L 75 16 145/57 100 06/19/20 16:45 98.5 F 68 20 127/69 94 06/19/20 12:04 98.4 F 74 18 135/56 95 - Physical Examination HEENT: Positive: PERRL Neck: Positive: neck supple, JVD/HJR Cardiac: Positive: irregularly irregular Lungs: Positive: Decreased Breath Sounds Abdomen: Positive: Soft Extremities: Present: edema - Labs and Meds Coagulation 06/19/20 06/20/20 Range/Units 10:45 06:14 PT 23.3 H 21.3 H (12.2-14.9) Sec. INR 2.07 H 1.85 H (0.87-1.13) CBC 06/20/20 Range/Units 06:14 WBC 6.7 (4.5-11.0) K/mm3 RBC 4.45 (3.65-5.03) M/mm3 Hgb 12.4 (10.1-14.3) gm/dl Hct 37.9 (30.3-42.9) % Plt Count 170 (140-440) K/mm3 Lymph # (Auto) 0.7 L (1.2-5.4) K/mm3 [place] # (Auto) 0.6 (0.0-0.8) K/mm3 Eos # (Auto) 0.1 (0.0-0.4) K/mm3 Baso # (Auto) 0.0 (0.0-0.1) K/mm3 Comprehensive Metabolic Panel 06/19/20 06/20/20 Range/Units 13:43 06:14 Sodium 141 142 (137-145) mmol/L Potassium 4.4 3.9 (3.6-5.0) mmol/L Chloride 103.2 103.8 (98-107) mmol/L Carbon Dioxide 26 27 (22-30) mmol/L BUN 27 H 30 H (7-17) mg/dL Creatinine 1.6 H 1.6 H (0.6-1.2) mg/dL Glucose 186 H 122 H (65-100) mg/dL Calcium 10.0 9.6 (8.4-10.2) mg/dL
[2020-06-20] MEDS: ASPIRIN 325 MG TAB PO SCH (10:19)
[2020-06-20] MEDS: ASCORBIC ACID 500 MG TAB PO SCH (10:19)
[2020-06-20] MEDS: carvediloL 6.25 MG TAB PO SCH ×2 (10:20→21:43)
--- NOTE | 2020-06-20 10:40 | Consultation ---
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 She denies any chest pain, no fever or chills, no nausea vomiting, no abdominal pain or diarrhea, denies any cough, denies any headache or dizziness. Patient denies any sick contacts and no recent travel, denies any contact with anyone with COVID-19. Pt admits to dietary noncompliance during the gi and early part of this month when she celebrated her birthday. CXR in ER showed evidence of pulmonary edema, labs showed elevated proBNP > 5000 along with elevated BUN/Cr at 30/1.6mg/dl. Pt was admitted for IV diuresis, renal consult is requested for management of CKD. Pt denies recent NSAIDs use or IV contrast exposure Past History Past Medical History: diabetes, hypertension, renal failure Past Surgical History: hysterectomy Social history: smoking (Former smoker) Family history: no significant family history Medications and Allergies Allergies Allergy/AdvReac Type Severity Reaction Status Date / Time Penicillins AdvReac Swelling Unverified 08/08/13 16:23 Home Medications Medication Instructions Recorded Confirmed Last Taken Type Ascorbic Acid [Vitamin C] 500 mg PO DAILY 12/24/17 06/19/20 09/13/19 History Aspirin 325 mg PO QDAY #30 tablet 12/28/17 06/19/20 09/13/19 Rx Carvedilol [Coreg] 12.5 mg PO BID #60 tablet 12/28/17 06/19/20 09/13/19 Rx Cyanocobalamin (Vitamin B-12) 500 mcg PO DAILY #30 tablet 12/28/17 06/19/20 09/13/19 Rx [Vitamin B-12] Ferrous Sulfate [Iron 325 MG] 325 mg PO QDAY #30 tablet 12/28/17 06/19/20 09/13/19 Rx Furosemide [Lasix] 20 mg PO QDAY #30 tablet 12/28/17 06/19/20 09/13/19 Rx [place]-3/Dha/Epa/Fish Oil [Fish Oil 1 each PO DAILY #30 capsule 12/28/17 06/19/20 09/13/19 Rx 1,000 mg Softgel] Pravastatin [Pravachol] 20 mg PO QHS #30 tablet 12/28/17 06/19/20 09/12/19 Rx Sodium Bicarbonate 650 mg PO BID #60 tablet 12/28/17 06/19/20 09/13/19 Rx Spironolactone [Aldactone] 25 mg PO QDAY #30 tablet 12/28/17 06/19/20 09/13/19 Rx Tocopherol [Vitamin E Cap] 400 unit PO QDAY capsule 12/28/17 06/19/20 09/12/19 Rx Vitamin E 400 unit PO QDAY #30 capsule 12/28/17 06/19/20 09/13/19 Rx Cetirizine HCl [ZyrTEC 10mg cap] 10 mg PO QDAY 14 Days #14 capsule 07/03/18 06/19/20 09/13/19 Rx Calcium Carbonate/Vitamin D3 1 each PO DAILY 09/13/19 06/19/20 09/13/19 History [Caltrate 600 Plus D3 Tablet] Cinnamon Bark [Cinnamon] 500 mg PO DAILY 09/13/19 06/19/20 09/13/19 History Glimepiride [Amaryl] 4 mg PO BID 09/13/19 06/19/20 09/13/19 History Losartan Potassium 50 mg PO DAILY 09/13/19 06/19/20 09/13/19 History Mecobalamin [B12 Active] 1,000 mcg PO DAILY 09/13/19 06/19/20 09/13/19 History Omeprazole 40 mg PO BID 09/13/19 06/19/20 09/13/19 History Insulin Degludec [Tresiba] 20 units SUB-Q HS 09/16/19 06/19/20 09/12/19 History Glimepiride [Amaryl] 4 mg PO BID 06/19/20 06/19/20 Unknown History Losartan Potassium 50 mg PO QDAY 06/19/20 06/19/20 Unknown History Warfarin [Coumadin] 2.5 mg PO QDAY 06/19/20 06/19/20 Unknown History Active Meds: Active Medications Acetaminophen (Acetaminophen 325 Mg Tab) 650 mg PO Q4H PRN PRN Reason: Pain MILD(1-3)/Fever >100.5/COULTER Ascorbic Acid (Ascorbic Acid 500 Mg Tab) 500 mg PO DAILY [facility] Last Admin: 06/20/20 10:19 Dose: 500 mg Documented by: Aspirin (Aspirin 325 Mg Tab) 325 mg PO QDAY [facility] Last Admin: 06/20/20 10:19 Dose: 325 mg Documented by: Carvedilol (Carvedilol 6.25 Mg Tab) 6.25 mg PO BID [facility] Last Admin: 06/20/20 10:20 Dose: 6.25 mg Documented by: Dextrose (Dextrose 50% In Water (25gm) 50 Ml Syringe) 0 ml IV Q30MIN PRN; Protocol PRN Reason: Hypoglycemia Furosemide (Furosemide 40 Mg/4 Ml Inj) 40 mg IV BID@0600,1800 [facility] Last Admin: 06/20/20 06:12 Dose: 40 mg Documented by: Insulin Human Regular (Insulin Regular, Human 100 Unit/Ml 3ml Vial) 0 unit SUB- Q ACHS [facility]; Protocol Last Admin: 06/20/20 08:15 Dose: Not Given Documented by: Magnesium Hydroxide (Magnesium Hydroxide (Mom) Oral Liqd Udc) 30 ml PO Q4H PRN PRN Reason: Constipation Morphine Sulfate (Morphine 2 Mg/1 Ml Inj) 2 mg IV Q4H PRN PRN Reason: Pain, Moderate (4-6) Ondansetron HCl (Ondansetron 4 Mg/2 Ml Inj) 4 mg IV Q8H PRN PRN Reason: Nausea And Vomiting Pravastatin Sodium (Pravastatin 20 Mg Tab) 20 mg PO QHS [facility] Last Admin: 06/19/20 22:53 Dose: 20 mg Documented by: Sodium Chloride (Sodium Chloride 0.9% 10 Ml Flush Syringe) 10 ml IV BID [facility] Last Admin: 06/20/20 10:21 Dose: 10 ml Documented by: Sodium Chloride (Sodium Chloride 0.9% 10 Ml Flush Syringe) 10 ml IV PRN PRN PRN Reason: LINE FLUSH Warfarin Sodium (Warfarin 2.5 Mg Tab) 2.5 mg PO DAILY@1700 [facility] Last Admin: 06/19/20 17:37 Dose: 2.5 mg Documented by: Review of Systems All systems: negative Constitutional: fatigue, weakness Cardiovascular: shortness of breath, dyspnea on exertion, leg edema Exam - Vital Signs Vital signs: Vital Signs Temp Pulse Resp BP Pulse Ox 97.8 F 84 16 148/47 99 06/18/20 17:18 06/18/20 17:18 06/18/20 17:18 06/18/20 17:18 06/18/20 17:18 - General Appearance General appearance: well-developed, well-nourished, appears stated age EENT: ATNC, PERRL, mucous membranes moist Neck: Present: neck supple Respiratory: Decreased Breath Sounds Heart: regular, S1S2 Gastrointestinal: Present: normoactive bowel sounds Integumentary: no rash, other (+ edema b/l LE ) Neurologic: no focal deficit, alert and oriented x3, strength 5/5, CN 3-12 intact Psychiatric: mood/affect appropriate, cooperative Results - Lab Results 06/20/20 06:14 06/20/20 06:14 Most recent lab results Calcium 9.6 mg/dL (8.4-10.2) 06/20/20 06:14 Assessment and Plan - Patient Problems (1) Renal failure (ARF), acute on chronic Current Visit: Yes Status: Acute Plan to address problem: likely secondary to acute cardiorenal syndrome. cont IV diuresis w/ lasix. patient's renal function is close to her baseline, can resume her losartan. Cont supportive care for CKD, avoid nephrotoxins, NSAIDs, IV contrast. Check UA, urine lytes, urine P/Cr ratio (2) Pulmonary edema Current Visit: Yes Status: Acute Plan to address problem: Cont IV diuersis with lasix 40mg bid, to target net negative fluid balance > 1L/day. strict I/Os, daily weight. Discussed importance of fluid restriction to less than 1.5L/day, Na restriction. (3) CHF exacerbation Current Visit: Yes Status: Acute Qualifiers: Heart failure type: unspecified Qualified Code(s): I50.9 - Heart failure, unspecified Plan to address problem: Cont IV diuersis with lasix 40mg bid, to target net negative fluid balance. strict I/Os, daily weight. Discussed importance of fluid restriction to less than 1.5L/day, Na restriction. Can cont losartan since pt's renal function is at her baseline. (4) Hypertensive chronic kidney disease with stage 1 through stage 4 chronic kidney disease, or unspecified chronic kidney disease Current Visit: Yes Status: Acute Plan to address problem: Monitor BP on current meds
[2020-06-20] MEDS: LOSARTAN 50 MG TAB PO SCH (13:05)
--- NOTE | 2020-06-20 15:16 | Progress Note ---
Assessment and Plan -- Acute on chronic diastolic CHF exacerbation Patient placed on diuretics. Will monitor inputs and outputs and also monitor daily weight. Echocardiogram done in September 2019 shows an ejection fraction of 50 to 55%. Patient follows up with Dr. Johnson. -- HTN (hypertension) Resumed routine home medications and monitor vital signs closely. -- Renal failure (ARF), acute on chronic likely cardiorenal syndrome consulted to nephrology for evaluation and recommendation. Will monitor BUN and creatinine. -- DVT prophylaxis Patient placed on subcutaneous heparin. --Severe mitral stenosis with severe pulmonary hypertension 09/2019 Echo - moderate to severe mitral stenosis, mean gradient 9.42. There is dilated right. heart chambers and severe pulmonary hypertension RVSP 73 mmHg. Ejection fraction 50-55%. Patient is a surgical candidate -May need to transfer to higher level of care --Permanent atrial fibrillation Rate controlled with current medications, continue Coumadin for anticoagulation -- Full code status Brief History: 68-year-old -[place] female with known history of hypertension, CHF, chronic kidney disease and diabetes mellitus presented to the urgency room complaining of shortness of breath and swelling in her lower extremities which has been ongoing for the past 2 days. Patient follows up with a telecommunications administrator Dr. Johnson . She had an echocardiogram sometime in September 2019 with an ejection fraction of 50 to 55%. Work-up in the emergency room today reveals elevated BNP, chest x-ray also shows pulmonary edema. There was slight worsening of her creatinine from her baseline . Patient was admitted for CHF exacerbation, acute on chronic kidney failure. 06/19; cont iv diuretics for CHF exacerbation, INR therapeutic, will resume coumadin, cont current care. follow BMP 06/20; cont diuresis, follow BMP. monitor INR. Follow cardiology recommendation Subjective Date of service: 06/20/20 Principal diagnosis: CHF Interval history: Patient seen and examined. Medical records and medication list reviewed. No acute event overnight noted by the RN. Patient denies any chest pain but complains of difficulty breathing even on resting. Has trace bilateral lower extremity edema Patient is tolerating diet. Discussed plan of care at bedside with patient. Objective - Exam Narrative Exam: GENERAL: well-developed and well-nourished -[place] female lying on bed appeared to be in no discomfort. HEENT: Normocephalic. Atraumatic. No conjunctival congestion or icterus. Patient has moist mucous membranes. NECK: Supple. Trachea midline. CHEST/LUNGS: Few crackles auscultated bilaterally, breathing nonlabored. No wheezes or rhonchi. HEART/CARDIOVASCULAR: Regular in rate and rhythm. S1 and S2 positive. ABDOMEN: Abdomen is soft, nontender. Patient has normal bowel sounds. SKIN: There is no rash. Warm and dry. NEURO: No focal motor deficit. Follows command. MUSCULOSKELETAL: No joint effusion or tenderness. EXTRIMITY: Trace edema, no cyanosis or clubbing. PSYCH: Cooperative. - Constitutional Vitals: Vital Signs - 12hr 06/20/20 06/20/20 06/20/20 04:22 07:29 11:11 Temperature 98.1 F 97.8 F 97.7 F Pulse Rate 81 72 70 Respiratory 16 18 18 Rate Blood Pressure 137/60 131/71 142/48 O2 Sat by Pulse 94 97 94 Oximetry - Labs CBC & Chem 7: 06/20/20 06:14 06/22/20 01:41 Labs: Abnormal lab results 06/19/20 06/19/20 06/20/20 Range/Units 16:48 20:56 06:14 RDW 17.5 H (13.2-15.2) % Lymph % (Auto) 11.1 L (13.4-35.0) % [place] % (Auto) 9.5 H (0.0-7.3) % Lymph # (Auto) 0.7 L (1.2-5.4) K/mm3 Seg Neutrophils % 77.0 H (40.0-70.0) % PT (12.2-14.9) Sec. INR (0.87-1.13) BUN (7-17) mg/dL Creatinine (0.6-1.2) mg/dL Glucose (65-100) mg/dL POC Glucose 157 H 166 H (70-105) mg/dL 06/20/20 06/20/20 06/20/20 Range/Units 06:14 06:14 07:27 RDW (13.2-15.2) % Lymph % (Auto) (13.4-35.0) % [place] % (Auto) (0.0-7.3) % Lymph # (Auto) (1.2-5.4) K/mm3 Seg Neutrophils % (40.0-70.0) % PT 21.3 H (12.2-14.9) Sec. INR 1.85 H (0.87-1.13) BUN 30 H (7-17) mg/dL Creatinine 1.6 H (0.6-1.2) mg/dL Glucose 122 H (65-100) mg/dL POC Glucose 124 H (70-105) mg/dL 06/20/20 Range/Units 11:10 RDW (13.2-15.2) % Lymph % (Auto) (13.4-35.0) % [place] % (Auto) (0.0-7.3) % Lymph # (Auto) (1.2-5.4) K/mm3 Seg Neutrophils % (40.0-70.0) % PT (12.2-14.9) Sec. INR (0.87-1.13) BUN (7-17) mg/dL Creatinine (0.6-1.2) mg/dL Glucose (65-100) mg/dL POC Glucose 180 H (70-105) mg/dL
[2020-06-20 16:13] LABS: Bacteria,Urine 4+ /HPF (Negative); Bilirubin,Urine NEG (Negative); Blood,Urine NEG (Negative); Color,Urine Yellow (Yellow); Mucus,Urine FEW /HPF; Protein,Urine <15 mg/dL mg/dL (Negative); RBC,Urine < 1.0 /HPF (0.0-6.0); Urobilinogen,Urine < 2.0 mg/dL (<2.0); WBC,Urine < 1.0 /HPF (0.0-6.0)
[2020-06-20 16:16] LABS: Creatinine,Urine 27.9 mg/dL (0.1-20.0)
[2020-06-20] MEDS ORDERED: WARFARIN 2 MG TAB PO SCH (17:00)
[2020-06-20] MEDS: PRAVASTATIN 20 MG TAB PO SCH (21:42)
[2020-06-21] MEDS: FUROSEMIDE 40 MG/4 ML INJ IV SCH ×2 (06:18→17:45)
[2020-06-21 06:24] LABS: INR 1.77 (0.87-1.13)
[2020-06-21 06:36] LABS: Calcium 9.5 mg/dL (8.4-10.2)
[2020-06-21] MEDS: INSULIN REGULAR, HUMAN 100 UNIT/ML 3ML VIAL SUB-Q SCH ×4 (08:12→22:42)
[2020-06-21] MEDS: ASPIRIN 325 MG TAB PO SCH (09:25)
[2020-06-21] MEDS: ASCORBIC ACID 500 MG TAB PO SCH (09:25)
[2020-06-21] MEDS: LOSARTAN 50 MG TAB PO SCH (09:25)
[2020-06-21] MEDS: carvediloL 6.25 MG TAB PO SCH ×2 (09:26→22:21)
--- NOTE | 2020-06-21 10:04 | Progress Note ---
Assessment and Plan - Patient Problems (1) Renal failure (ARF), acute on chronic Current Visit: Yes Status: Acute Plan to address problem: Chronic kidney disease stage III secondary to diabetic nephropathy/hypertensive nephrosclerosis with acute kidney injury prerenal ischemia secondary to acute cardiorenal syndrome. Kidney function is marginally worse. Continue cautious diuresis and follow-up electrolytes and renal function. (2) Acute on chronic heart failure Current Visit: Yes Status: Acute Plan to address problem: Acute on chronic heart failure due to dietary nonadherence. Patient responding to IV diuretics. Continue IV diuretics for 1 more day (3) Type 2 diabetes mellitus with diabetic nephropathy Current Visit: Yes Status: Acute Plan to address problem: Blood sugar management by primary attending (4) Hypertensive chronic kidney disease with stage 1 through stage 4 chronic kidney disease, or unspecified chronic kidney disease Current Visit: Yes Status: Acute Plan to address problem: Blood pressure is controlled. Follow-up blood pressure on current medications Subjective Date of service: 06/21/20 Principal diagnosis: CHF Interval history: Patient seen lying in bed. She has no complaints. She is about to eat breakfast. No chest pain. Shortness of breath has improved -now able to walk around on the floor. No nausea or vomiting Objective - Exam Narrative Exam: Middle-aged -Citizen Of [place] female lying in bed in no acute distress HEENT: NCAT, pink oral mucous membrane Neck: Supple, no venous distention CVS: S1S2 RRR with no murmur, rub or gallop Chest: Clear to auscultation but breath sounds a bit diminished Abdomen: Protuberant, soft, nontender, no organomegaly, bowel sounds are present Extremities: Mild edema both legs Neuro: Awake, alert no focal deficits - Vital Signs Vital signs: Vital Signs - 12hr 06/20/20 06/21/20 06/21/20 23:26 02:00 04:01 Temperature 97.8 F 97.8 F Pulse Rate 79 81 74 Respiratory 18 18 Rate Blood Pressure 134/62 136/58 O2 Sat by Pulse 96 94 Oximetry 06/21/20 08:16 Temperature 98.0 F Pulse Rate 74 Respiratory 18 Rate Blood Pressure 133/71 O2 Sat by Pulse 93 Oximetry - Lab 06/20/20 06:14 06/21/20 05:54 Most recent lab results Calcium 9.5 mg/dL (8.4-10.2) 06/21/20 05:54 Urine Creatinine 27.9 mg/dL (0.1-20.0) H 06/20/20 Unknown Urine Sodium 125 mmol/L 06/20/20 Unknown Urine Total Protein 7 mg/dL (5-11.8) 06/20/20 Unknown Medications & Allergies - Medications Allergies/Adverse Reactions: Allergies Penicillins Adverse Reaction (Unverified 08/08/13 16:23) Swelling Home Medications: Home Medications Medication Instructions Recorded Confirmed Last Taken Type Ascorbic Acid [Vitamin C] 500 mg PO DAILY 12/24/17 06/19/20 09/13/19 History Aspirin 325 mg PO QDAY #30 tablet 12/28/17 06/19/20 09/13/19 Rx Carvedilol [Coreg] 12.5 mg PO BID #60 tablet 12/28/17 06/19/20 09/13/19 Rx Cyanocobalamin (Vitamin B-12) 500 mcg PO DAILY #30 tablet 12/28/17 06/19/20 09/13/19 Rx [Vitamin B-12] Ferrous Sulfate [Iron 325 MG] 325 mg PO QDAY #30 tablet 12/28/17 06/19/20 09/13/19 Rx Furosemide [Lasix] 20 mg PO QDAY #30 tablet 12/28/17 06/19/20 09/13/19 Rx [place]-3/Dha/Epa/Fish Oil [Fish Oil 1 each PO DAILY #30 capsule 12/28/17 06/19/20 09/13/19 Rx 1,000 mg Softgel] Pravastatin [Pravachol] 20 mg PO QHS #30 tablet 12/28/17 06/19/20 09/12/19 Rx Sodium Bicarbonate 650 mg PO BID #60 tablet 12/28/17 06/19/20 09/13/19 Rx Spironolactone [Aldactone] 25 mg PO QDAY #30 tablet 12/28/17 06/19/20 09/13/19 Rx Tocopherol [Vitamin E Cap] 400 unit PO QDAY capsule 12/28/17 06/19/20 09/12/19 Rx Vitamin E 400 unit PO QDAY #30 capsule 12/28/17 06/19/20 09/13/19 Rx Cetirizine HCl [ZyrTEC 10mg cap] 10 mg PO QDAY 14 Days #14 capsule 07/03/18 06/19/20 09/13/19 Rx Calcium Carbonate/Vitamin D3 1 each PO DAILY 09/13/19 06/19/20 09/13/19 History [Caltrate 600 Plus D3 Tablet] Cinnamon Bark [Cinnamon] 500 mg PO DAILY 09/13/19 06/19/20 09/13/19 History Glimepiride [Amaryl] 4 mg PO BID 09/13/19 06/19/20 09/13/19 History Losartan Potassium 50 mg PO DAILY 09/13/19 06/19/20 09/13/19 History Mecobalamin [B12 Active] 1,000 mcg PO DAILY 09/13/19 06/19/20 09/13/19 History Omeprazole 40 mg PO BID 09/13/19 06/19/20 09/13/19 History Insulin Degludec [Tresiba] 20 units SUB-Q HS 09/16/19 06/19/20 09/12/19 History Glimepiride [Amaryl] 4 mg PO BID 06/19/20 06/19/20 Unknown History Losartan Potassium 50 mg PO QDAY 06/19/20 06/19/20 Unknown History Warfarin [Coumadin] 2.5 mg PO QDAY 06/19/20 06/19/20 Unknown History Active Medications: Generic Name Dose Route Start Last Admin Trade Name Freq PRN Reason Stop Dose Admin Acetaminophen 650 mg 06/19/20 05:51 Acetaminophen 325 Mg Tab PO Q4H PRN Pain MILD(1-3)/Fever >100.5/COULTER Ascorbic Acid 500 mg 06/19/20 10:00 06/21/20 09:25 Ascorbic Acid 500 Mg Tab PO 500 mg DAILY POOL Administration Aspirin 325 mg 06/19/20 10:00 06/21/20 09:25 Aspirin 325 Mg Tab PO 325 mg QDAY POOL Administration Carvedilol 6.25 mg 06/19/20 10:00 06/21/20 09:26 Carvedilol 6.25 Mg Tab PO 6.25 mg BID POOL Administration Dextrose 0 ml 06/19/20 05:51 Dextrose 50% In Water (25gm) 50 Ml Syringe IV Q30MIN PRN Hypoglycemia Protocol Furosemide 40 mg 06/19/20 06:00 06/21/20 06:18 Furosemide 40 Mg/4 Ml Inj IV 40 mg BID@0600,1800 POOL Administration Insulin Human Regular 0 unit 06/19/20 07:30 06/21/20 08:12 Insulin Regular, Human 100 Unit/Ml 3ml Vial SUB-Q Not Given ACHS [facility] Protocol Losartan Potassium 50 mg 06/20/20 12:00 06/21/20 09:25 Losartan 50 Mg Tab PO 50 mg QDAY POOL Administration Magnesium Hydroxide 30 ml 06/19/20 05:51 Magnesium Hydroxide (Mom) Oral Liqd Udc PO Q4H PRN Constipation Morphine Sulfate 2 mg 06/19/20 05:51 Morphine 2 Mg/1 Ml Inj IV Q4H PRN Pain, Moderate (4-6) Ondansetron HCl 4 mg 06/19/20 05:51 Ondansetron 4 Mg/2 Ml Inj IV Q8H PRN Nausea And Vomiting Pravastatin Sodium 20 mg 06/19/20 22:00 06/20/20 21:42 Pravastatin 20 Mg Tab PO 20 mg QHS POOL Administration Sodium Chloride 10 ml 06/19/20 10:00 06/21/20 09:26 Sodium Chloride 0.9% 10 Ml Flush Syringe IV 10 ml BID POOL Administration Sodium Chloride 10 ml 06/19/20 05:51 Sodium Chloride 0.9% 10 Ml Flush Syringe IV PRN PRN LINE FLUSH Warfarin Sodium 5 mg 06/21/20 17:00 Warfarin 5 Mg Tab PO DAILY@1700 [facility]
--- NOTE | 2020-06-21 10:23 | Progress Note ---
Assessment and Plan Acute on chronic diastolic heart failure Severe mitral stenosis with severe pulmonary hypertension Permanent atrial fibrillation on warfarin for oral anticoagulation rate controlled with carvedilol Acute renal failure Essential primary hypertension Cardiac tests: 09/2019 Echo - moderate to severe mitral stenosis, mean gradient 9.42. There is dilated right heart chambers and severe pulmonary hypertension RVSP 73 mmHg. Ejection fraction 50-55%. 12/2017 R/LHC findings: Severe pulmonary hypertension, pulmonary artery systolic pressure of 95. Severe mitral stenosis, mean gradient 16.5, mitral valve area 0.9. Mild aortic stenosis, trans-aortic gradient less than 10. Angiographically normal coronary arteries. Left ventricular systolic function at lower limits of normal, ejection fraction 50%. Subjective Date of service: 06/21/20 Principal diagnosis: CHF Interval history: Patient reports her breathing is improving. Admits she is diuresing well. Objective Vital Signs Temp Pulse Resp BP Pulse Ox 06/21/20 08:16 98.0 F 74 18 133/71 93 06/21/20 04:01 97.8 F 74 18 136/58 94 06/21/20 02:00 81 06/20/20 23:26 97.8 F 79 18 134/62 96 06/20/20 22:00 18 06/20/20 21:43 88 138/61 06/20/20 19:25 98.1 F 88 18 138/61 96 06/20/20 15:49 97.6 F 68 18 129/60 96 06/20/20 11:11 97.7 F 70 18 142/48 94 - Physical Examination General: No Apparent Distress HEENT: Positive: PERRL Neck: Positive: neck supple Cardiac: Positive: irregularly irregular Lungs: Positive: Decreased Breath Sounds Neuro: Positive: Grossly Intact Abdomen: Positive: Soft Extremities: Present: +1 Edema - Labs and Meds Coagulation 06/21/20 Range/Units 05:54 PT 20.7 H (12.2-14.9) Sec. INR 1.77 H (0.87-1.13) Comprehensive Metabolic Panel 06/21/20 Range/Units 05:54 Sodium 142 (137-145) mmol/L Potassium 4.1 (3.6-5.0) mmol/L Chloride 103.3 (98-107) mmol/L Carbon Dioxide 25 (22-30) mmol/L BUN 34 H (7-17) mg/dL Creatinine 1.7 H (0.6-1.2) mg/dL Glucose 134 H (65-100) mg/dL Calcium 9.5 (8.4-10.2) mg/dL
--- NOTE | 2020-06-21 16:00 | Progress Note ---
Assessment and Plan -- Acute on chronic diastolic CHF exacerbation Patient placed on diuretics. Will monitor inputs and outputs and also monitor daily weight. Echocardiogram done in September 2019 shows an ejection fraction of 50 to 55%. Patient follows up with Dr. Johnson. -- HTN (hypertension) Resumed routine home medications and monitor vital signs closely. -- Renal failure (ARF), acute on chronic likely cardiorenal syndrome consulted to nephrology for evaluation and recommendation. Will monitor BUN and creatinine. --Severe mitral stenosis 09/2019 Echo - moderate to severe mitral stenosis, mean gradient 9.42. There is dilated right. heart chambers and severe pulmonary hypertension RVSP 73 mmHg. Ejection fraction 50-55%. Patient is a surgical candidate -would be managed as outpatient per cardiology --Severe pulmonary hypertension From severe mitral stenosis pulmonary artery pressures on echocardiogram ranging from 75 to 95 mmHg We will also consult pulmonary --Permanent atrial fibrillation Rate controlled with current medications, continue Coumadin for anticoagulation -- DVT prophylaxis Patient placed on subcutaneous heparin. -- Full code status Brief History: 68-year-old -[place] female with known history of hypertension, CHF, chronic kidney disease and diabetes mellitus presented to the urgency room complaining of shortness of breath and swelling in her lower extremities which has been ongoing for the past 2 days. Patient follows up with a parking officer Dr. Johnson . She had an echocardiogram sometime in September 2019 with an ejection fraction of 50 to 55%. Work-up in the emergency room today reveals elevated BNP, chest x-ray also shows pulmonary edema. There was slight worsening of her creatinine from her baseline. Patient was admitted for CHF exacerbation, acute on chronic kidney felix nakul. 06/19; cont iv diuretics for CHF exacerbation, INR therapeutic, will resume coumadin, cont current care. follow BMP 06/20; cont diuresis, follow BMP. monitor INR. Follow cardiology recommendation 06/21: cont diuresis, consult pulmonary for severe PHTN. If clinically stable possible discharge tomorrow Subjective Date of service: 06/21/20 Principal diagnosis: CHF Interval history: Patient seen and examined. Medical records and medication list reviewed. No acute event overnight noted by the RN. Patient denies any chest pain but complains of difficulty breathing only on exertion. Has trace bilateral lower extremity edema Patient is tolerating diet. Discussed plan of care at bedside with patient. Objective - Exam Narrative Exam: GENERAL: well-developed and well-nourished -[place] female lying on bed appeared to be in no discomfort. HEENT: Normocephalic. Atraumatic. No conjunctival congestion or icterus. Patient has moist mucous membranes. NECK: Supple. Trachea midline. CHEST/LUNGS: Few crackles auscultated bilaterally, breathing nonlabored. No wheezes or rhonchi. HEART/CARDIOVASCULAR: Regular in rate and rhythm. S1 and S2 positive. ABDOMEN: Abdomen is soft, nontender. Patient has normal bowel sounds. SKIN: There is no rash. Warm and dry. NEURO: No focal motor deficit. Follows command. MUSCULOSKELETAL: No joint effusion or tenderness. EXTRIMITY: Trace edema, no cyanosis or clubbing. PSYCH: Cooperative. - Constitutional Vitals: Vital Signs - 12hr 06/21/20 06/21/20 06/21/20 04:01 08:16 10:00 Temperature 97.8 F 98.0 F Pulse Rate 74 74 74 Respiratory 18 18 Rate Blood Pressure 136/58 133/71 O2 Sat by Pulse 94 93 Oximetry 06/21/20 11:17 Temperature 97.9 F Pulse Rate 71 Respiratory 18 Rate Blood Pressure 127/53 O2 Sat by Pulse 93 Oximetry - Labs CBC & Chem 7: 06/20/20 06:14 06/22/20 01:41 Labs: Abnormal lab results 06/20/20 06/20/20 06/20/20 Range/Units 16:37 21:46 Unknown PT (12.2-14.9) Sec. INR (0.87-1.13) BUN (7-17) mg/dL Creatinine (0.6-1.2) mg/dL Glucose (65-100) mg/dL POC Glucose 135 H 223 H (70-105) mg/dL Urine Creatinine 27.9 H (0.1-20.0) mg/dL 06/21/20 06/21/20 06/21/20 Range/Units 05:54 05:54 08:03 PT 20.7 H (12.2-14.9) Sec. INR 1.77 H (0.87-1.13) BUN 34 H (7-17) mg/dL Creatinine 1.7 H (0.6-1.2) mg/dL Glucose 134 H (65-100) mg/dL POC Glucose 118 H (70-105) mg/dL Urine Creatinine (0.1-20.0) mg/dL 06/21/20 Range/Units 11:38 PT (12.2-14.9) Sec. INR (0.87-1.13) BUN (7-17) mg/dL Creatinine (0.6-1.2) mg/dL Glucose (65-100) mg/dL POC Glucose 165 H (70-105) mg/dL Urine Creatinine (0.1-20.0) mg/dL
--- NOTE | 2020-06-21 17:27 | Consultation ---
History of Present Illness Consult date: 06/21/20 Reason for consult: dyspnea, pulmonary hypertension, other (Pulmonary edema) History of present illness: 68-year-old -German female with known history of hypertension, CHF, chronic kidney disease and diabetes mellitus presenting to the urgency room today complaining of shortness of breath and swelling in her lower extremities which has been ongoing for the past 2 days. She has also been having some dyspnea on exertion. She denies any chest pain, no fever or chills, no nausea vomiting, no abdominal pain or diarrhea, denies any cough, denies any headache or dizziness. Patient denies any sick contacts and no recent travel, denies any contact with anyone with COVID-19. Patient follows up with a accounts manager Dr. Johnson . She had an echocardiogram sometime in September 2019 with an ejection fraction of 50 to 55%. Patient however indicates that she has not been quite compliant with her diet lately she has been eating a lot of salt during the and early part of this month when she celebrated her birthday. Work-up in the emergency room today reveals elevated BNP, chest x-ray also shows pulmonary edema. There was slight worsening of her creatinine from her baseline. Patient is being admitted for CHF exacerbation, acute on chronic kidney failure. Patient has history of smoking 1 pack x 35 years. Stopped smoking 14 years ago. Denies alcohol or drug abuse. 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 Patient presently resting on room air. O2 saturation 96%. Patient feeling better than she came in. Denies shortness of breath,cough or chest pain at this time. Past History Past Medical History: diabetes, hypertension, renal failure Past Surgical History: hysterectomy Social history: smoking (Former smoker) Family history: no significant family history Medications and Allergies Allergies Allergy/AdvReac Type Severity Reaction Status Date / Time Penicillins AdvReac Swelling Unverified 08/08/13 16:23 Home Medications Medication Instructions Recorded Confirmed Last Taken Type Ascorbic Acid [Vitamin C] 500 mg PO DAILY 12/24/17 06/19/20 09/13/19 History Aspirin 325 mg PO QDAY #30 tablet 12/28/17 06/19/20 09/13/19 Rx Carvedilol [Coreg] 12.5 mg PO BID #60 tablet 12/28/17 06/19/20 09/13/19 Rx Cyanocobalamin (Vitamin B-12) 500 mcg PO DAILY #30 tablet 12/28/17 06/19/20 09/13/19 Rx [Vitamin B-12] Ferrous Sulfate [Iron 325 MG] 325 mg PO QDAY #30 tablet 12/28/17 06/19/20 09/13/19 Rx Furosemide [Lasix] 20 mg PO QDAY #30 tablet 12/28/17 06/19/20 09/13/19 Rx [place]-3/Dha/Epa/Fish Oil [Fish Oil 1 each PO DAILY #30 capsule 12/28/17 06/19/20 09/13/19 Rx 1,000 mg Softgel] Pravastatin [Pravachol] 20 mg PO QHS #30 tablet 12/28/17 06/19/20 09/12/19 Rx Sodium Bicarbonate 650 mg PO BID #60 tablet 12/28/17 06/19/20 09/13/19 Rx Spironolactone [Aldactone] 25 mg PO QDAY #30 tablet 12/28/17 06/19/20 09/13/19 Rx Tocopherol [Vitamin E Cap] 400 unit PO QDAY capsule 12/28/17 06/19/20 09/12/19 Rx Vitamin E 400 unit PO QDAY #30 capsule 12/28/17 06/19/20 09/13/19 Rx Cetirizine HCl [ZyrTEC 10mg cap] 10 mg PO QDAY 14 Days #14 capsule 07/03/18 06/19/20 09/13/19 Rx Calcium Carbonate/Vitamin D3 1 each PO DAILY 09/13/19 06/19/20 09/13/19 History [Caltrate 600 Plus D3 Tablet] Cinnamon Bark [Cinnamon] 500 mg PO DAILY 09/13/19 06/19/20 09/13/19 History Glimepiride [Amaryl] 4 mg PO BID 09/13/19 06/19/20 09/13/19 History Losartan Potassium 50 mg PO DAILY 09/13/19 06/19/20 09/13/19 History Mecobalamin [B12 Active] 1,000 mcg PO DAILY 09/13/19 06/19/20 09/13/19 History Omeprazole 40 mg PO BID 09/13/19 06/19/20 09/13/19 History Insulin Degludec [Tresiba] 20 units SUB-Q HS 09/16/19 06/19/20 09/12/19 History Glimepiride [Amaryl] 4 mg PO BID 06/19/20 06/19/20 Unknown History Losartan Potassium 50 mg PO QDAY 06/19/20 06/19/20 Unknown History Warfarin [Coumadin] 2.5 mg PO QDAY 06/19/20 06/19/20 Unknown History Active Meds: Active Medications Acetaminophen (Acetaminophen 325 Mg Tab) 650 mg PO Q4H PRN PRN Reason: Pain MILD(1-3)/Fever >100.5/COULTER Ascorbic Acid (Ascorbic Acid 500 Mg Tab) 500 mg PO DAILY [facility] Last Admin: 06/21/20 09:25 Dose: 500 mg Documented by: Aspirin (Aspirin 325 Mg Tab) 325 mg PO QDAY [facility] Last Admin: 06/21/20 09:25 Dose: 325 mg Documented by: Carvedilol (Carvedilol 6.25 Mg Tab) 6.25 mg PO BID [facility] Last Admin: 06/21/20 09:26 Dose: 6.25 mg Documented by: Dextrose (Dextrose 50% In Water (25gm) 50 Ml Syringe) 0 ml IV Q30MIN PRN; Protocol PRN Reason: Hypoglycemia Furosemide (Furosemide 40 Mg/4 Ml Inj) 40 mg IV BID@0600,1800 [facility] Last Admin: 06/21/20 06:18 Dose: 40 mg Documented by: Insulin Human Regular (Insulin Regular, Human 100 Unit/Ml 3ml Vial) 0 unit SUB- Q [facility]; Protocol Last Admin: 06/21/20 12:35 Dose: 2 unit Documented by: Losartan Potassium (Losartan 50 Mg Tab) 50 mg PO QDAY [facility] Last Admin: 06/21/20 09:25 Dose: 50 mg Documented by: Magnesium Hydroxide (Magnesium Hydroxide (Mom) Oral Liqd Udc) 30 ml PO Q4H PRN PRN Reason: Constipation Morphine Sulfate (Morphine 2 Mg/1 Ml Inj) 2 mg IV Q4H PRN PRN Reason: Pain, Moderate (4-6) Ondansetron HCl (Ondansetron 4 Mg/2 Ml Inj) 4 mg IV Q8H PRN PRN Reason: Nausea And Vomiting Pravastatin Sodium (Pravastatin 20 Mg Tab) 20 mg PO QHS [facility] Last Admin: 06/20/20 21:42 Dose: 20 mg Documented by: Sodium Chloride (Sodium Chloride 0.9% 10 Ml Flush Syringe) 10 ml IV BID [facility] Last Admin: 06/21/20 09:26 Dose: 10 ml Documented by: Sodium Chloride (Sodium Chloride 0.9% 10 Ml Flush Syringe) 10 ml IV PRN PRN PRN Reason: LINE FLUSH Warfarin Sodium (Warfarin 5 Mg Tab) 5 mg PO DAILY@1700 [facility] Review of Systems All systems: negative Physical Examination Vital signs: Vital Signs Temp Pulse Resp BP Pulse Ox 97.8 F 84 16 148/47 99 06/18/20 17:18 06/18/20 17:18 06/18/20 17:18 06/18/20 17:18 06/18/20 17:18 General appearance: no acute distress, alert Eyes: non-icteric ENT: oropharynx moist Neck: supple, no lymphadenopathy Effort: mildly labored Ascultation: Bilateral: rales Cardiovascular: regular rate and rhythm Gastrointestinal: normoactive bowel sounds, soft, non-tender Integumentary: normal Extremities: no cyanosis, no edema Musculoskeletal: no deformities Gait: other (Resting in blood at this time.) normal mental status, non-focal exam, pupils equal and round, CN II-XII normal, motor strength normal and mood appropriate Results - Laboratory Findings CBC and BMP: 06/20/20 06:14 06/21/20 05:54 PT/INR, D-dimer PT 20.7 Sec. (12.2-14.9) H 06/21/20 05:54 INR 1.77 (0.87-1.13) H 06/21/20 05:54 Abnormal lab findings: Abnormal Labs 06/18/20 06/18/20 06/19/20 17:59 17:59 07:43 RDW 17.6 H Lymph % (Auto) 12.6 L [place] % (Auto) 7.4 H Lymph # (Auto) 1.0 L Seg Neutrophils % 78.4 H PT INR Carbon Dioxide 21 L BUN 30 H Creatinine 1.8 H Glucose 165 H POC Glucose 131 H Alkaline Phosphatase 291 H NT-Pro-B Natriuret Pep 5070 H Urine Creatinine 06/19/20 06/19/20 06/19/20 10:45 12:08 13:43 RDW Lymph % (Auto) [place] % (Auto) Lymph # (Auto) Seg Neutrophils % PT 23.3 H INR 2.07 H Carbon Dioxide BUN 27 H Creatinine 1.6 H Glucose 186 H POC Glucose 112 H Alkaline Phosphatase NT-Pro-B Natriuret Pep Urine Creatinine 06/19/20 06/19/20 06/20/20 16:48 20:56 06:14 RDW 17.5 H Lymph % (Auto) 11.1 L [place] % (Auto) 9.5 H Lymph # (Auto) 0.7 L Seg Neutrophils % 77.0 H PT INR Carbon Dioxide BUN Creatinine Glucose POC Glucose 157 H 166 H Alkaline Phosphatase NT-Pro-B Natriuret Pep Urine Creatinine 06/20/20 06/20/20 06/20/20 06:14 06:14 07:27 RDW Lymph % (Auto) [place] % (Auto) Lymph # (Auto) Seg Neutrophils % PT 21.3 H INR 1.85 H Carbon Dioxide BUN 30 H Creatinine 1.6 H Glucose 122 H POC Glucose 124 H Alkaline Phosphatase NT-Pro-B Natriuret Pep Urine Creatinine 06/20/20 06/20/20 06/20/20 11:10 16:37 21:46 RDW Lymph % (Auto) [place] % (Auto) Lymph # (Auto) Seg Neutrophils % PT INR Carbon Dioxide BUN Creatinine Glucose POC Glucose 180 H 135 H 223 H Alkaline Phosphatase NT-Pro-B Natriuret Pep Urine Creatinine 06/20/20 06/21/20 06/21/20 Unknown 05:54 05:54 RDW Lymph % (Auto) [place] % (Auto) Lymph # (Auto) Seg Neutrophils % PT 20.7 H INR 1.77 H Carbon Dioxide BUN 34 H Creatinine 1.7 H Glucose 134 H POC Glucose Alkaline Phosphatase NT-Pro-B Natriuret Pep Urine Creatinine 27.9 H 06/21/20 06/21/20 06/21/20 08:03 11:38 16:56 RDW Lymph % (Auto) [place] % (Auto) Lymph # (Auto) Seg Neutrophils % PT INR Carbon Dioxide BUN Creatinine Glucose POC Glucose 118 H 165 H 230 H Alkaline Phosphatase NT-Pro-B Natriuret Pep Urine Creatinine - Diagnostic Findings Chest x-ray: report reviewed, image reviewed Additional studies: CHEST 2 VIEWS 06/18/20 INDICATION / CLINICAL INFORMATION: S OB with a history of CHF. FINDINGS: SUPPORT DEVICES: None. HEART / MEDIASTINUM: Cardiomegaly. LUNGS / PLEURA: Mild bilateral interstitial edema. Assessment and Plan 68-year-old -German female with known history of hypertension, CHF, chronic kidney disease and diabetes mellitus presenting to the urgency room today complaining of shortness of breath and swelling in her lower extremities which has been ongoing for the past 2 days. She has also been having some dyspnea on exertion. She denies any chest pain, no fever or chills, no nausea vomiting, no abdominal pain or diarrhea, denies any cough, denies any headache or dizziness. Patient denies any sick contacts and no recent travel, denies any contact with anyone with COVID-19. Patient follows up with a accounts manager Dr. Johnson . She had an echocardiogram sometime in September 2019 with an ejection fraction of 50 to 55%. Patient however indicates that she has not been quite compliant with her diet lately she has been eating a lot of salt during the and early part of this month when she celebrated her birthday. Work-up in the emergency room today reveals elevated BNP, chest x-ray also shows pulmonary edema. There was slight worsening of her creatinine from her baseline. Patient is being admitted for CHF exacerbation, acute on chronic kidney failure. Patient has history of smoking 1 pack x 35 years. Stopped smoking 14 years ago. Denies alcohol or drug abuse. 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 Patient presently resting on room air. O2 saturation 96%. Patient feeling better than she came in. Denies shortness of breath,cough or chest pain at this time. - Patient Problems (1) Dyspnea Current Visit: Yes Status: Acute Plan to address problem: Likely from pulmonary edema. Patient says she is breathing better now. On room air. O2 saturation 96%. (2) Pulmonary edema Current Visit: Yes Status: Acute Plan to address problem: Repeating chest xray. (3) Acute on chronic heart failure Current Visit: Yes Status: Acute Plan to address problem: Management as per cardiology. (4) Anemia in chronic kidney disease (CKD) Current Visit: Yes Status: Acute Plan to address problem: Management as per primary care and nephrology. (5) Hypertensive chronic kidney disease with stage 1 through stage 4 chronic kidney disease, or unspecified chronic kidney disease Current Visit: Yes Status: Acute Plan to address problem: Management as per nephrology. (6) Type 2 diabetes mellitus with diabetic nephropathy Current Visit: Yes Status: Acute Plan to address problem: Management as per primary care. (7) Obesity Current Visit: No Status: Acute Plan to address problem: Recommend to loose weight. (8) Obesity hypoventilation syndrome Current Visit: No Status: Acute Plan to address problem: Recommend to loose weight. Obtaining ABGs. Recommend sleep study as out patient. (9) Pulmonary hypertension Current Visit: No Status: Acute
[2020-06-21] MEDS: WARFARIN 5 MG TAB PO SCH (17:46)
[2020-06-21] MEDS: PRAVASTATIN 20 MG TAB PO SCH (22:21)
[2020-06-22 02:30] LABS: Calcium 9.5 mg/dL (8.4-10.2)
[2020-06-22 06:02] LABS: INR 1.74 (0.87-1.13)
[2020-06-22] MEDS: FUROSEMIDE 40 MG/4 ML INJ IV SCH ×2 (06:06→18:08)
[2020-06-22] MEDS: ASPIRIN 325 MG TAB PO SCH (10:48)
[2020-06-22] MEDS: carvediloL 6.25 MG TAB PO SCH (10:49)
[2020-06-22] MEDS: ASCORBIC ACID 500 MG TAB PO SCH (10:49)
[2020-06-22] MEDS: LOSARTAN 50 MG TAB PO SCH ×2 (10:52→13:06)
[2020-06-22] MEDS: INSULIN REGULAR, HUMAN 100 UNIT/ML 3ML VIAL SUB-Q SCH ×3 (10:53→18:08)
--- NOTE | 2020-06-22 11:16 | Progress Note ---
Assessment and Plan Patient alert, awake, resting on room air. O2 saturation 94%. No complaint of chest pain, shortness of breath, No cough, Recommend to repeat chest xray. Abgs pending. - Patient Problems (1) Dyspnea Current Visit: Yes Status: Acute Plan to address problem: Likely from pulmonary edema. Patient says she is breathing better now. On room air. O2 saturation 96%. ABGs pending. (2) Pulmonary edema Current Visit: Yes Status: Acute Plan to address problem: Recommend to repeat chest xray. (3) Acute on chronic heart failure Current Visit: Yes Status: Acute Plan to address problem: Management as per cardiology. (4) Anemia in chronic kidney disease (CKD) Current Visit: Yes Status: Acute Plan to address problem: Management as per primary care and nephrology. (5) Hypertensive chronic kidney disease with stage 1 through stage 4 chronic kidney disease, or unspecified chronic kidney disease Current Visit: Yes Status: Acute Plan to address problem: Management as per nephrology. (6) Type 2 diabetes mellitus with diabetic nephropathy Current Visit: Yes Status: Acute Plan to address problem: Management as per primary care. (7) Obesity Current Visit: No Status: Acute Plan to address problem: Recommend to loose weight. (8) Obesity hypoventilation syndrome Current Visit: No Status: Acute Plan to address problem: Recommend to loose weight. Obtaining ABGs. Recommend sleep study as out patient. (9) Pulmonary hypertension Current Visit: No Status: Acute Plan to address problem: Recommend Echocardiogram to estimate pulmonary artery pressure. Subjective Date of service: 06/22/20 Principal diagnosis: CHF Interval history: Patient alert, awake, resting on room air. O2 saturation 94%. No complaint of chest pain, shortness of breath, No cough, Recommend to repeat chest xray. Abgs pending. Objective Vital Signs - 12hr 06/22/20 06/22/20 06/22/20 02:00 03:48 07:39 Temperature 97.6 F 98.3 F Pulse Rate 81 80 76 Respiratory 18 18 Rate Blood Pressure 114/58 124/32 O2 Sat by Pulse 96 94 Oximetry 06/22/20 07:40 Temperature 98.3 F Pulse Rate 74 Respiratory 18 Rate Blood Pressure 111/46 O2 Sat by Pulse 92 Oximetry Constitutional: no acute distress, alert Eyes: non-icteric ENT: oropharynx moist Neck: supple, no lymphadenopathy Effort: mildly labored Ascultation: Bilateral: rales Cardiovascular: regular rate and rhythm Gastrointestinal: normoactive bowel sounds, soft, non-tender Integumentary: normal Extremities: no cyanosis, no edema Neurologic: normal mental status, non-focal exam, pupils equal and round, CN II- XII normal, motor strength normal and Psychiatric: mood appropriate CBC and BMP: 06/20/20 06:14 06/22/20 01:41 ABG, PT/INR, D-dimer: PT/INR, D-dimer PT 20.4 Sec. (12.2-14.9) H 06/22/20 05:21 INR 1.74 (0.87-1.13) H 06/22/20 05:21 Abnormal lab findings: Abnormal Labs 06/18/20 06/18/20 06/19/20 17:59 17:59 07:43 RDW 17.6 H Lymph % (Auto) 12.6 L [place] % (Auto) 7.4 H Lymph # (Auto) 1.0 L Seg Neutrophils % 78.4 H PT INR Carbon Dioxide 21 L BUN 30 H Creatinine 1.8 H Glucose 165 H POC Glucose 131 H Alkaline Phosphatase 291 H NT-Pro-B Natriuret Pep 5070 H Urine Creatinine 06/19/20 06/19/20 06/19/20 10:45 12:08 13:43 RDW Lymph % (Auto) [place] % (Auto) Lymph # (Auto) Seg Neutrophils % PT 23.3 H INR 2.07 H Carbon Dioxide BUN 27 H Creatinine 1.6 H Glucose 186 H POC Glucose 112 H Alkaline Phosphatase NT-Pro-B Natriuret Pep Urine Creatinine 06/19/20 06/19/20 06/20/20 16:48 20:56 06:14 RDW 17.5 H Lymph % (Auto) 11.1 L [place] % (Auto) 9.5 H Lymph # (Auto) 0.7 L Seg Neutrophils % 77.0 H PT INR Carbon Dioxide BUN Creatinine Glucose POC Glucose 157 H 166 H Alkaline Phosphatase NT-Pro-B Natriuret Pep Urine Creatinine 06/20/20 06/20/20 06/20/20 06:14 06:14 07:27 RDW Lymph % (Auto) [place] % (Auto) Lymph # (Auto) Seg Neutrophils % PT 21.3 H INR 1.85 H Carbon Dioxide BUN 30 H Creatinine 1.6 H Glucose 122 H POC Glucose 124 H Alkaline Phosphatase NT-Pro-B Natriuret Pep Urine Creatinine 06/20/20 06/20/20 06/20/20 11:10 16:37 21:46 RDW Lymph % (Auto) [place] % (Auto) Lymph # (Auto) Seg Neutrophils % PT INR Carbon Dioxide BUN Creatinine Glucose POC Glucose 180 H 135 H 223 H Alkaline Phosphatase NT-Pro-B Natriuret Pep Urine Creatinine 06/20/20 06/21/20 06/21/20 Unknown 05:54 05:54 RDW Lymph % (Auto) [place] % (Auto) Lymph # (Auto) Seg Neutrophils % PT 20.7 H INR 1.77 H Carbon Dioxide BUN 34 H Creatinine 1.7 H Glucose 134 H POC Glucose Alkaline Phosphatase NT-Pro-B Natriuret Pep Urine Creatinine 27.9 H 06/21/20 06/21/20 06/21/20 08:03 11:38 16:56 RDW Lymph % (Auto) [place] % (Auto) Lymph # (Auto) Seg Neutrophils % PT INR Carbon Dioxide BUN Creatinine Glucose POC Glucose 118 H 165 H 230 H Alkaline Phosphatase NT-Pro-B Natriuret Pep Urine Creatinine 06/21/20 06/22/20 06/22/20 22:39 01:41 05:21 RDW Lymph % (Auto) [place] % (Auto) Lymph # (Auto) Seg Neutrophils % PT 20.4 H INR 1.74 H Carbon Dioxide BUN 42 H Creatinine 1.8 H Glucose 207 H POC Glucose 182 H Alkaline Phosphatase NT-Pro-B Natriuret Pep Urine Creatinine 06/22/20 08:23 RDW Lymph % (Auto) [place] % (Auto) Lymph # (Auto) Seg Neutrophils % PT INR Carbon Dioxide BUN Creatinine Glucose POC Glucose 157 H Alkaline Phosphatase NT-Pro-B Natriuret Pep Urine Creatinine
[2020-06-22 11:22] LABS: ABG Base Excess 0.5 mmol/L (-2.0-3.0); ABG HCO3 23.6 mmol/L (20.0-26.0); ABG Methemoglobin 0.5 % (0.0-1.5); ABG Oxygen Saturation 96.8 % (95.0-99.0); ABG PCO2 33.1 mm Hg; ABG PH 7.47 pH Units (7.350-7.450)
--- NOTE | 2020-06-22 11:25 | Progress Note ---
Assessment and Plan - Patient Problems (1) Renal failure (ARF), acute on chronic Current Visit: Yes Status: Acute Plan to address problem: Chronic kidney disease stage III secondary to diabetic nephropathy/hypertensive nephrosclerosis with acute kidney injury prerenal ischemia secondary to acute cardiorenal syndrome. Kidney function is not significantly changed. Okay to discharge home on p.o. Lasix twice daily. Will schedule follow-up to see me in a couple of weeks and get labs a couple of days before that visit. Discussed with the patient (2) Acute on chronic heart failure Current Visit: Yes Status: Acute Plan to address problem: Acute on chronic heart failure due to dietary nonadherence. Patient responded to IV diuretics. Change to p.o. diuretics and patient Discharged home from my standpoint (3) Type 2 diabetes mellitus with diabetic nephropathy Current Visit: Yes Status: Acute Plan to address problem: Blood sugar management by primary attending (4) Hypertensive chronic kidney disease with stage 1 through stage 4 chronic kidney disease, or unspecified chronic kidney disease Current Visit: Yes Status: Acute Plan to address problem: Blood pressure is controlled. Follow-up blood pressure on current medications Subjective Date of service: 06/22/20 Principal diagnosis: CHF Interval history: Patient seen lying in bed. She has no complaints. No chest pain. Shortness of breath has improved. No nausea or vomiting. She wants to go home Objective - Exam Narrative Exam: Middle-aged -Mal[place] female lying in bed in no acute distress HEENT: NCAT, pink oral mucous membrane Neck: Supple, no venous distention CVS: S1S2 RRR with no murmur, rub or gallop Chest: Clear to auscultation but breath sounds a bit diminished Abdomen: Protuberant, soft, nontender, no organomegaly, bowel sounds are present Extremities: Mild edema both legs Neuro: Awake, alert no focal deficits - Vital Signs Vital signs: Vital Signs - 12hr 06/22/20 06/22/20 06/22/20 02:00 03:48 07:39 Temperature 97.6 F 98.3 F Pulse Rate 81 80 76 Respiratory 18 18 Rate Blood Pressure 114/58 124/32 O2 Sat by Pulse 96 94 Oximetry 06/22/20 07:40 Temperature 98.3 F Pulse Rate 74 Respiratory 18 Rate Blood Pressure 111/46 O2 Sat by Pulse 92 Oximetry - Lab 06/20/20 06:14 06/22/20 01:41 Most recent lab results ABG pH 7.470 pH Units (7.350-7.450) H 06/22/20 10:55 ABG pCO2 33.1 mm Hg 06/22/20 10:55 ABG pO2 77.0 mm Hg (80.0-90.0) L 06/22/20 10:55 ABG HCO3 23.6 mmol/L (20.0-26.0) 06/22/20 10:55 ABG O2 Saturation 96.8 % (95.0-99.0) 06/22/20 10:55 Calcium 9.5 mg/dL (8.4-10.2) 06/22/20 01:41 Urine Creatinine 27.9 mg/dL (0.1-20.0) H 06/20/20 Unknown Urine Sodium 125 mmol/L 06/20/20 Unknown Urine Total Protein 7 mg/dL (5-11.8) 06/20/20 Unknown Medications & Allergies - Medications Allergies/Adverse Reactions: Allergies Penicillins Adverse Reaction (Unverified 08/08/13 16:23) Swelling Home Medications: Home Medications Medication Instructions Recorded Confirmed Last Taken Type Ascorbic Acid [Vitamin C] 500 mg PO DAILY 12/24/17 06/19/20 09/13/19 History Aspirin 325 mg PO QDAY #30 tablet 12/28/17 06/19/20 09/13/19 Rx Carvedilol [Coreg] 12.5 mg PO BID #60 tablet 12/28/17 06/19/20 09/13/19 Rx Cyanocobalamin (Vitamin B-12) 500 mcg PO DAILY #30 tablet 12/28/17 06/19/20 09/13/19 Rx [Vitamin B-12] Ferrous Sulfate [Iron 325 MG] 325 mg PO QDAY #30 tablet 12/28/17 06/19/20 09/13/19 Rx Furosemide [Lasix] 20 mg PO QDAY #30 tablet 12/28/17 06/19/20 09/13/19 Rx [place]-3/Dha/Epa/Fish Oil [Fish Oil 1 each PO DAILY #30 capsule 12/28/17 06/19/20 09/13/19 Rx 1,000 mg Softgel] Pravastatin [Pravachol] 20 mg PO QHS #30 tablet 12/28/17 06/19/20 09/12/19 Rx Sodium Bicarbonate 650 mg PO BID #60 tablet 12/28/17 06/19/20 09/13/19 Rx Spironolactone [Aldactone] 25 mg PO QDAY #30 tablet 12/28/17 06/19/20 09/13/19 Rx Tocopherol [Vitamin E Cap] 400 unit PO QDAY capsule 12/28/17 06/19/20 09/12/19 Rx Vitamin E 400 unit PO QDAY #30 capsule 12/28/17 06/19/20 09/13/19 Rx Cetirizine HCl [ZyrTEC 10mg cap] 10 mg PO QDAY 14 Days #14 capsule 07/03/18 06/19/20 09/13/19 Rx Calcium Carbonate/Vitamin D3 1 each PO DAILY 09/13/19 06/19/20 09/13/19 History [Caltrate 600 Plus D3 Tablet] Cinnamon Bark [Cinnamon] 500 mg PO DAILY 09/13/19 06/19/20 09/13/19 History Glimepiride [Amaryl] 4 mg PO BID 09/13/19 06/19/20 09/13/19 History Losartan Potassium 50 mg PO DAILY 09/13/19 06/19/20 09/13/19 History Mecobalamin [B12 Active] 1,000 mcg PO DAILY 09/13/19 06/19/20 09/13/19 History Omeprazole 40 mg PO BID 09/13/19 06/19/20 09/13/19 History Insulin Degludec [Tresiba] 20 units SUB-Q HS 09/16/19 06/19/20 09/12/19 History Glimepiride [Amaryl] 4 mg PO BID 06/19/20 06/19/20 Unknown History Losartan Potassium 50 mg PO QDAY 06/19/20 06/19/20 Unknown History Warfarin [Coumadin] 2.5 mg PO QDAY 06/19/20 06/19/20 Unknown History Active Medications: Generic Name Dose Route Start Last Admin Trade Name Freq PRN Reason Stop Dose Admin Acetaminophen 650 mg 06/19/20 05:51 Acetaminophen 325 Mg Tab PO Q4H PRN Pain MILD(1-3)/Fever >100.5/COULTER Ascorbic Acid 500 mg 06/19/20 10:00 06/22/20 10:49 Ascorbic Acid 500 Mg Tab PO 500 mg DAILY POOL Administration Aspirin 325 mg 06/19/20 10:00 06/22/20 10:48 Aspirin 325 Mg Tab PO 325 mg QDAY POOL Administration Carvedilol 6.25 mg 06/19/20 10:00 06/22/20 10:49 Carvedilol 6.25 Mg Tab PO 6.25 mg BID POOL Administration Dextrose 0 ml 06/19/20 05:51 Dextrose 50% In Water (25gm) 50 Ml Syringe IV Q30MIN PRN Hypoglycemia Protocol Furosemide 40 mg 06/19/20 06:00 06/22/20 06:06 Furosemide 40 Mg/4 Ml Inj IV 40 mg BID@0600,1800 [facility] Administration Insulin Human Regular 0 unit 06/19/20 07:30 06/22/20 10:53 Insulin Regular, Human 100 Unit/Ml 3ml Vial SUB-Q Not Given ACHS [facility] Protocol Losartan Potassium 50 mg 06/20/20 12:00 06/22/20 10:52 Losartan 50 Mg Tab PO Not Given QDAY [facility] Magnesium Hydroxide 30 ml 06/19/20 05:51 Magnesium Hydroxide (Mom) Oral Liqd Udc PO Q4H PRN Constipation Morphine Sulfate 2 mg 06/19/20 05:51 Morphine 2 Mg/1 Ml Inj IV Q4H PRN Pain, Moderate (4-6) Ondansetron HCl 4 mg 06/19/20 05:51 Ondansetron 4 Mg/2 Ml Inj IV Q8H PRN Nausea And Vomiting Pravastatin Sodium 20 mg 06/19/20 22:00 06/21/20 22:21 Pravastatin 20 Mg Tab PO 20 mg QHS POOL Administration Sodium Chloride 10 ml 06/19/20 10:00 06/22/20 10:49 Sodium Chloride 0.9% 10 Ml Flush Syringe IV 10 ml BID POOL Administration Sodium Chloride 10 ml 06/19/20 05:51 Sodium Chloride 0.9% 10 Ml Flush Syringe IV PRN PRN LINE FLUSH Warfarin Sodium 5 mg 06/21/20 17:00 06/21/20 17:46 Warfarin 5 Mg Tab PO 5 mg DAILY@1700 POOL Administration
[2020-06-22 12:06] VITALS: BP 138/56
--- NOTE | 2020-06-22 13:08 | Progress Note ---
Assessment and Plan Acute on chronic diastolic heart failure Severe mitral stenosis with severe pulmonary hypertension Permanent atrial fibrillation on warfarin for oral anticoagulation rate controlled with carvedilol Acute renal failure Essential primary hypertension Cardiac tests: 09/2019 Echo - moderate to severe mitral stenosis, mean gradient 9.42. There is dilated right heart chambers and severe pulmonary hypertension RVSP 73 mmHg. Ejection fraction 50-55%. 12/2017 R/LHC findings: Severe pulmonary hypertension, pulmonary artery systolic pressure of 95. Severe mitral stenosis, mean gradient 16.5, mitral valve area 0.9. Mild aortic stenosis, trans-aortic gradient less than 10. Angiographically normal coronary arteries. Left ventricular systolic function at lower limits of normal, ejection fraction 50%. Advised sodium and fluid restriction. Continue current medical therapy. Stable cardiac flores for discharge home today. Candidacy for surgery will be discussed further with cardiothoracic surgeon and can be pursued as an outpatient. Subjective Date of service: 06/22/20 Principal diagnosis: CHF Interval history: Patient reports she is feeling better, wants to go home. Objective Vital Signs Temp Pulse Resp BP Pulse Ox 06/22/20 11:22 97.9 F 75 18 138/56 94 06/22/20 10:00 18 96 06/22/20 07:40 98.3 F 74 18 111/46 92 06/22/20 07:39 98.3 F 76 18 124/32 94 06/22/20 03:48 97.6 F 80 18 114/58 96 06/22/20 02:00 81 06/21/20 22:21 74 147/69 06/21/20 22:00 18 06/21/20 20:29 98.2 F 74 18 147/69 96 06/21/20 18:00 75 06/21/20 16:26 98.4 F 75 18 118/61 95 - Physical Examination General: No Apparent Distress HEENT: Positive: PERRL Neck: Positive: neck supple Cardiac: Positive: irregularly irregular Lungs: Positive: Decreased Breath Sounds Neuro: Positive: Grossly Intact Abdomen: Positive: Soft Extremities: Present: +1 Edema - Labs and Meds Coagulation 06/22/20 Range/Units 05:21 PT 20.4 H (12.2-14.9) Sec. INR 1.74 H (0.87-1.13) Comprehensive Metabolic Panel 06/22/20 Range/Units 01:41 Sodium 138 (137-145) mmol/L Potassium 3.9 (3.6-5.0) mmol/L Chloride 100.4 (98-107) mmol/L Carbon Dioxide 24 (22-30) mmol/L BUN 42 H (7-17) mg/dL Creatinine 1.8 H (0.6-1.2) mg/dL Glucose 207 H (65-100) mg/dL Calcium 9.5 (8.4-10.2) mg/dL
--- NOTE | 2020-06-22 14:12 | Discharge Summary ---
Providers - Providers Date of Admission: 06/19/20 05:15 Date of discharge: 06/22/20 Attending physician: JU ASKEW 06/19/20 05:51 Consult to Physician [CONS] Routine Comment: Consulting Provider: LUIS ENRIQUE CELAYA Physician Instructions: Reason For Exam: CHF Exacerbation 06/19/20 05:53 Consult to Dietitian/Nutrition [CONS] Routine Physician Instructions: Reason For Exam: Reason for Consult: Diet education 06/19/20 06:10 Consult to Physician [CONS] Routine Comment: Consulting Provider: BETSY RICHARDS Physician Instructions: Reason For Exam: Acute on chronic renal failure 06/21/20 15:59 Consult to Physician [CONS] Routine Comment: Consulting Provider: JEANNINE COTA Physician Instructions: Reason For Exam: severe pulmonary HTN Primary care physician: [employer]MER Hospitalization Condition: Good Pertinent studies: CXR Hospital course: 65-year-old -Al[place]ian female with known history of hypertension, CHF, chronic kidney disease and diabetes mellitus presented to the urgency room complaining of shortness of breath and swelling in her lower extremities which has been ongoing for the past 2 days. Patient follows up with a operating engineer Dr. Celaya . She had an echocardiogram sometime in September 2019 with an ejection fraction of 50 to 55%. Work-up in the emergency room revealed elevated BNP, chest x-ray also shows pulmonary edema. There was slight worsening of her creatinine from her baseline. Patient was admitted for CHF exacerbation, acute on chronic kidney failure. Daily hospital course; 06/19; cont iv diuretics for CHF exacerbation, INR therapeutic, will resume coumadin, cont current care. follow BMP 06/20; cont diuresis, follow BMP. monitor INR. Follow cardiology recommendation 06/21: cont diuresis, consult pulmonary for severe PHTN. If clinically stable possible discharge tomorrow 06/22: Patient clinically stable, will follow-up at cardiology clinic for possible outpatient surgical intervention for her severe mitral valvular stenosis. Discharge diagnosis: Acute on chronic diastolic CHF exacerbation - Status post IV diuresis, 2D echo showed EF 50 to 55% on September 2019 Hypertension, continue routine home medications Acute on chronic renal failure -Patient likely has CKD stage III - likely has diabetic nephropathy and hypertensive nephrosclerosis with acute kidney injury prerenal ischemia secondary to acute cardiorenal syndrome. -Renal function was stable -We will follow-up outpatient with nephrology Severe mitral valve stenosis - 09/2019 Echo - moderate to severe mitral stenosis, mean gradient 9.42. There is dilated right. heart chambers and severe pulmonary hypertension RVSP 73 mmHg. Ejection fraction 50-55%. Patient is a surgical candidate -would be managed as outpatient per cardiology Severe pulmonary hypertension from severe mitral stenosis, outpatient follow-up Chronic atrial fibrillation, rate controlled with current medication, on Coumadin for anticoagulation Diabetes mellitus type 2, continue home insulin regimen DVT prophylaxis, patient on Coumadin Disposition: TO HOME OR SELFCARE Time spent for discharge: 34 minutes Core Measure Documentation - Palliative Care Palliative Care/ Comfort Measures: Not Applicable - Core Measures Any of the following diagnoses?: heart failure - Heart Failure Discharge Requirements QUINN/ARB for LVSD if EF <40%: Yes Beta marianna at discharge: Yes Exam - Physical Exam Narrative exam: GENERAL: well-developed and well-nourished -Al[place]ian female lying on bed appeared to be in no discomfort. HEENT: Normocephalic. Atraumatic. No conjunctival congestion or icterus. Patient has moist mucous membranes. NECK: Supple. Trachea midline. CHEST/LUNGS: Few crackles auscultated bilaterally, breathing nonlabored. No wheezes or rhonchi. HEART/CARDIOVASCULAR: Regular in rate and rhythm. S1 and S2 positive. ABDOMEN: Abdomen is soft, nontender. Patient has normal bowel sounds. SKIN: There is no rash. Warm and dry. NEURO: No focal motor deficit. Follows command. MUSCULOSKELETAL: No joint effusion or tenderness. EXTRIMITY: Trace edema, no cyanosis or clubbing. PSYCH: Cooperative. - Constitutional Vitals: Temp Pulse Resp BP Pulse Ox 97.9 F 75 18 138/56 94 06/22/20 11:22 06/22/20 11:22 06/22/20 11:22 06/22/20 13:06 06/22/20 11:22 Plan Activity: advance as tolerated Weight Bearing Status: Non-Weight Bearing Diet: low fat, low salt Special Instructions: restrict fluid intake to (1.2L daily), record daily weights, record daily BP diary Follow up with: ALICIA SHELDON MD [Primary Care Provider] - 3-5 Days LUIS ENRIQUE CELAYA MD [Staff Physician] - 7 Days Forms: Warfarin Discharge Instruction Prescriptions: carvediloL [Coreg] 6.25 mg PO BID #60 tablet Warfarin [Coumadin] 5 mg PO DAILY@1700 #14 tablet
[2020-06-22] MEDS: WARFARIN 5 MG TAB PO SCH (16:07)
--- NOTE | 2020-06-22 16:12 | XRay Report ---
XR chest routine 2V INDICATION / CLINICAL INFORMATION: Follow up on pulmonary edema.. COMPARISON: 06/18/2020 FINDINGS: SUPPORT DEVICES: None. HEART /PULMONARY VASCULATURE: Cardiac enlargement with pulmonary vasculature congestion. LUNGS / PLEURA: Stable bibasilar interstitial edema. No new or increasing airspace consolidation. No pleural effusion. No pneumothorax. ADDITIONAL FINDINGS: No significant additional findings. IMPRESSION: Stable findings of CHF/volume overload with mild interstitial edema. Signer Name: Erwin Rodriguez MD Signed: 06/22/2020 4:08 PM Workstation Name: [id number]
== END 2020-06-22 18:07 | disposition home or self-care (01) | DRG 682 ==
LOC: ED 17:15 → 4A 06-19 05:15 → OBSVTOIN 06-19 05:15 → 4A 06-19 09:02
PROVIDERS: ADMIT Internal Medicine Geriatric Medicine; ATTEND Internal Medicine
PROC: 4A033R1 Measurement of Arterial Saturation, Peripheral, Percutaneous Approach (ICD-10-PCS; principal; 2020-06-22)
DX: N17.9 Acute kidney failure, unspecified (principal); I50.33 Acute on chronic diastolic (congestive) heart failure; I13.0 Hypertensive heart and chronic kidney disease with heart failure and stage 1 through stage 4 chronic kidney disease, or unspecified chronic kidney disease; I48.21 Permanent atrial fibrillation; E66.2 Morbid (severe) obesity with alveolar hypoventilation; E11.22 Type 2 diabetes mellitus with diabetic chronic kidney disease; I05.0 Rheumatic mitral stenosis; D63.1 Anemia in chronic kidney disease; I27.20 Pulmonary hypertension, unspecified; N18.30 Chronic kidney disease, stage 3 unspecified; E11.21 Type 2 diabetes mellitus with diabetic nephropathy; Z68.34 Body mass index [BMI] 34.0-34.9, adult; Z87.891 Personal history of nicotine dependence; Z88.0 Allergy status to penicillin; Z90.710 Acquired absence of both cervix and uterus
CPT/HCPCS: 36415; 36600; 71046; 80048; 80053; 81001; 82570; 82803; 82962; 83880; 84156; 84300; 85025; 85610; 90471; 93005; 96374; 96375; G0378; A9270-GY; J1644; J1940

== ENCOUNTER 2020-07-27 07:24 | Day surgery (SDC) | payer OTHER, MEDICARE ==
[2020-07-27] MEDS ORDERED: ASPIRIN EC 325 MG TAB PO ONE (09:00)
[2020-07-27 09:13] LABS: Basophils # (Auto) 0.1 K/mm3 (0.0-0.1); Basophils % (Auto) 0.8 % (0.0-1.8); Eosinophils # (Auto) 0.1 K/mm3 (0.0-0.4); Eosinophils % (Auto) 1.9 % (0.0-4.3); Hematocrit 36.8 % (30.3-42.9); Lymphocytes # (Auto) 0.7 K/mm3 (1.2-5.4); Lymphocytes % (Auto) 9.8 % (13.4-35.0); Mean Corpuscular HGB Conc 33 % (30-34); Mean Corpuscular Volume 87 fl (79-97); Monocytes # (Auto) 0.6 K/mm3 (0.0-0.8); Monocytes % (Auto) 7.9 % (0.0-7.3); Platelet Count 159 K/mm3 (140-440); Red Blood Count 4.23 M/mm3 (3.65-5.03); Red Cell Distribution Width 17.8 % (13.2-15.2)
[2020-07-27] MEDS: SODIUM CHLORIDE 0.9% 500 ML 500 ML IV SCH ×2 (09:16→11:44)
[2020-07-27 09:23] LABS: INR 1.65 (0.87-1.13)
[2020-07-27 09:51] LABS: Calcium 9.4 mg/dL (8.4-10.2)
[2020-07-27] MEDS ORDERED: HEPARIN/NS 5000 UNIT/500ML 1,000 ML IR ONE (10:45)
[2020-07-27] MEDS ORDERED: MIDAZOLAM 2 MG/2 ML INJ ONE (11:15)
[2020-07-27] MEDS: LIDOCAINE (2%) 20 MG/1 ML VIAL 20 ML MDV INFILTRATI ONE ×2 (11:46→12:11)
[2020-07-27] MEDS: fentaNYL 100 MCG/2 ML INJ ONE ×2 (11:46→12:11)
[2020-07-27] MEDS ORDERED: VERAPAMIL 5 MG/2 ML INJ ONE (12:06)
[2020-07-27] MEDS ORDERED: NITROGLYCERIN SYRINGE 3 ML ONE (12:06)
[2020-07-27] MEDS ORDERED: HEPARIN 10,000 UNITS/10 ML VIAL ONE (12:06)
[2020-07-27] MEDS ORDERED: HEPARIN/NS 5000 UNIT/500ML 500 ML IR ONE (12:17)
--- NOTE | 2020-07-27 13:04 | Cardiac Catherization Report ---
CARDIAC CATHETERIZATION REPORT REASON FOR PROCEDURE: The patient is a 65-year-old woman with progressive mitral stenosis and recurrent congestive heart failure, being evaluated for mitral valve replacement surgery. A right and left heart catheterization was recommended. PROCEDURES: 1. Right heart catheterization. 2. Left heart catheterization. 3. Selective left and right coronary angiography. 4. Left ventricular angiography. 5. Sedation time, start 1146 hours, end 1240 hours. I was present for the entire procedure and supervised the moderate sedation protocol. DESCRIPTION OF PROCEDURE: The patient was prepped and draped in a sterile fashion after informed consent. We initially went via the right femoral approach, using the Seldinger technique, an 8-Vincentian sheath was placed in the right femoral vein and a 6-Vincentian sheath in the right femoral artery. A Steen-Heather catheter was then advanced to the pulmonary artery position. Cardiac output measured using thermodilution method. Attempts at retrograde catheterization via the right femoral artery was unsuccessful due to what appeared to be extensive atherosclerosis of the distal aorta and proximal segment of the right iliac artery. We then turned our attention to the right radial approach where we were able to cannulate the right radial, and insert a 6-Vincentian hydrophilic sheath. A radial cocktail was administered via the sheath. A pigtail catheter was then advanced into the left ventricle. We then recorded simultaneous left and right heart filling pressures. Following this, the Steen-Heather catheter was then withdrawn and right heart pressures recorded on pullback. Left ventricular angiography was then performed, following which the pigtail was withdrawn across the aortic valve and transaortic pressure recorded. Finally, selective left and right coronary angiography was performed using #3.5 left Lorie and #4 right Lorie. The catheters were then removed, the sheaths were removed, manual pressure for hemostasis on the right radial, right femoral arterial and right femoral venous entry sites. Procedure was well tolerated by the patient and there were no complications. FINDINGS: HEMODYNAMICS: Mean right atrial pressure was 30. Right ventricular pressure was 80/30. Pulmonary artery pressure was 80/45. The mean pulmonary artery wedge pressure was 30. Left ventricular end-diastolic pressure was 25. Ascending aortic pressure was 129/70. There was no significant pressure gradient on pullback across the aortic valve. Cardiac output was measured at 4.8 liters per minute. MITRAL VALVE STENOSIS: Simultaneous left ventricular end-diastolic and pulmonary artery wedge pressures revealed a mean transmitral gradient of 10 mmHg. Using the Gorlin equation, the mitral valve area was calculated at 1.7 sq cm. CORONARY ANGIOGRAPHY: The left main, left anterior descending artery and its diagonal branches were angiographically normal. The circumflex artery and its obtuse marginal branches were angiographically normal. The right coronary artery was dominant and similarly angiographically normal. Left ventricle was mildly dilated, with mild to moderate left ventricular systolic dysfunction, diffuse hypokinesis, left ventricular ejection fraction estimated at 35-40%. CONCLUSIONS: 1. Severe pulmonary hypertension with pulmonary artery pressures of 80/45. 2. Right heart dysfunction is suggested by marked elevation in right heart filling pressures, 30 mmHg. 3. Moderately severe mitral stenosis, with a mean gradient of 10 mmHg, and MVA 1.7 sq cm. 4. Angiographically normal coronary arteries. 5. Zlou-ch-opysleer left ventricular systolic dysfunction, ejection fraction 35-40%. RECOMMENDATION: The patient is recommended for CT surgery evaluation for mitral valve surgery, preceded by a cardiac MRI for right ventricular function assessment. [facility]# [id number] RUBA/ALISON PONCE
[2020-07-27] MEDS ORDERED: traMADol 50 MG TAB PO PRN (13:14)
[2020-07-27] MEDS ORDERED: HYDROcodone/ACETAMINOPHEN 5-325 MG TAB PO PRN (13:14)
--- NOTE | 2020-07-27 13:16 | Discharge Summary ---
Short Stay Discharge Plan Activity: advance as tolerated Weight Bearing Status: Partial Weight Bearing Diet: low fat, low cholesterol, low salt Wound: keep clean and dry Special Instructions: no heavy lifting (3 days) Follow up with: PRIMARY MD MONALISA [Primary Care Provider] - 7 Days LUIS ENRIQUE CELAYA MD [Staff Physician] - 7 Days
[2020-07-27] MEDS ORDERED: SODIUM CHLORIDE 0.9% 1000 ML 1,000 ML IV SCH (14:15)
[2020-07-27 16:31] VITALS: BP 150/75
== END 2020-07-27 17:30 | disposition home or self-care (01) ==
LOC: CATHLABREC 07:24
PROVIDERS: ATTEND Internal Medicine Cardiovascular Disease
DX: I05.0 Rheumatic mitral stenosis (principal); I13.0 Hypertensive heart and chronic kidney disease with heart failure and stage 1 through stage 4 chronic kidney disease, or unspecified chronic kidney disease; E11.22 Type 2 diabetes mellitus with diabetic chronic kidney disease; N18.9 Chronic kidney disease, unspecified; I50.9 Heart failure, unspecified; I48.91 Unspecified atrial fibrillation; E78.5 Hyperlipidemia, unspecified; E66.9 Obesity, unspecified; I27.20 Pulmonary hypertension, unspecified; E11.21 Type 2 diabetes mellitus with diabetic nephropathy; I25.10 Atherosclerotic heart disease of native coronary artery without angina pectoris; E11.51 Type 2 diabetes mellitus with diabetic peripheral angiopathy without gangrene; M19.90 Unspecified osteoarthritis, unspecified site; D64.9 Anemia, unspecified; Z98.890 Other specified postprocedural states; Z88.0 Allergy status to penicillin; Z79.4 Long term (current) use of insulin; Z79.82 Long term (current) use of aspirin; Z79.899 Other long term (current) drug therapy; Z87.891 Personal history of nicotine dependence; Z68.33 Body mass index [BMI] 33.0-33.9, adult; Z98.49 Cataract extraction status, unspecified eye; Z87.01 Personal history of pneumonia (recurrent); Z90.710 Acquired absence of both cervix and uterus
CPT/HCPCS: 36415; 80048; 85025; 85610; 85730; 93005; 93460; 99156; 99157; C1769; C1894; J1644; J2250; J3010; J7040; Q9967